=== PATIENT | female | born 1945 | race Caucasian/White ===

== ENCOUNTER 2019-02-28 16:48 | Inpatient (IN) ==
[2019-02-28] MEDS ORDERED: TYLENOL PO PRN (17:08)
[2019-02-28] MEDS ORDERED: NICODERM PATCH TD PRN (17:13)
[2019-02-28 17:53] LABS: BASO# 0.04 X1000 (0.0-0.2); BASO% 0.3 % (0.0-0.8); EOS# 0.06 X1000 (0.0-0.7); EOS% 0.4 % (0.0-10.0); HEMATOCRIT 33.9 % (37.0-47.0); HEMOGLOBIN 11.5 g/dL (12.0-16.0); IMM GRAN# 0.07 X1000 (0.0-0.04); IMM GRAN% 0.5 % (0.0-0.5); LYMPH# 1.32 X1000 (1.2-3.4); LYMPH% 9.3 % (20.5-51.1); MCH 29.2 PG (27-31); MCHC 33.9 g/dL (33-37); MONO# 1.77 X1000 (0.11-0.59); MONO% 12.4 % (1.7-9.3); MPV 10.2 FL (7.4-10.4); NEUT# 10.98 X1000 (1.4-6.5); NEUT% 77.1 % (42.2-75.2); PLT 424 X1000 (130-400); RBC 3.94 XMIL (4.2-5.4); RDW 13.9 % (11.5-14.5); WBC 14.24 X1000 (4.8-10.8)
--- NOTE | 2019-02-28 17:53 | HISTORY AND PHYSICAL ---
CHIEF COMPLAINT: Abdominal pain. HISTORY OF PRESENT ILLNESS: This is a 73-year-old female with no history of diverticulitis, I think she just has a history of hypertension, who presents from home with abdominal pain. This has been going on for about a month. Apparently, according to the daughter and the patient. She had underwent, daughter reports, colonoscopy about a week ago. Apparently, there was some difficulty passing the scope. That is what is reported; I do not have the report in front of me. Then had a CT set up as follow-up today, which revealed a lot of sigmoid thickening and evidence of diverticulitis with a likely abscess. She reports no fever. No nausea/vomiting. Patient was a direct admit per Dr. Honeycutt. PAST MEDICAL HISTORY: Hypertension. She does not report anything else and no other chronic medications. PAST SURGICAL HISTORY: She has had a tubal ligation 55 years ago. No other abdominal surgeries. SOCIAL HISTORY: Does smoke about 2 or 3 cigarettes a day. DISPOSITION: She was admitted for treatment. ALLERGIES: No known drug allergies. MEDICATIONS: I do not have a list compiled. FAMILY HISTORY: Reviewed and noncontributory. No colon cancer. Mother and father had CAD history. REVIEW OF SYSTEMS: Otherwise negative times a 10 point review of systems. Unclear what her weight loss is. PHYSICAL EXAMINATION: GENERAL: A thin female, pale, in no acute distress. HEAD: Normocephalic, atraumatic. EYE: Pupils equal, round, and reactive to light. Extraocular movements were intact. EAR, NOSE, AND THROAT: She had moist mucous membranes. NECK: Exam was supple. CARDIOVASCULAR: Regular rate and rhythm. PULMONARY: Bilateral breath sounds clear to auscultation. GASTROINTESTINAL: Soft, nontender, nondistended. Bowel sounds are positive. EXTREMITIES: No clubbing or cyanosis. LYMPHATIC: No peripheral edema. NEUROLOGICAL: Exam was nonfocal. MUSCULOSKELETAL: Exam was 4 to 5 in all 4 extremities. DIAGNOSTIC STUDIES: Laboratory Data: I have none. CT showed the sigmoid diverticulitis with a 5 x 5 cm abscess. PROBLEM LIST: This is a 73-year-old female, presenting with sigmoid abscess, most likely diverticular, possible chance of malignancy. 1. Diverticular abscess. We will get a surgical consult because she may need resection. I am also going to look at doing a CT-guided abscess drainage tomorrow, unless of course Dr. Taylor feels she needs surgery. We will continue empiric antibiotics. Zosyn should cover gram negatives and coliforms, so we will institute that. Continue pain control, IV fluids, and follow. 2. Hypertension. We will continue to monitor and see if she needs anything else from that standpoint. 3. Moderate protein-calorie malnutrition. We will monitor for refeeding syndrome. We will continue to follow closely. DISPOSITION: Pending clinical status. We will consult Dr. Taylor and Dr. Honeycutt and follow closely. I will order a CEA level as well. cc: MD Aren Muhammad MD Robert C. Walker, MD Babu Kantamneni, MD MTDD
[2019-02-28 18:02] LABS: INR 1.12; PROTIME 14.6 Seconds (11.0-16.0)
[2019-02-28 18:16] LABS: ESTIMATED GFR > 60
[2019-02-28 18:30] LABS: AGAP 18; ALB/GLOB RATIO 0.8; ALBUMIN 3.1 g/dL (3.5-5.0); ALKALINE PHOSPHATASE 87 U/L (32-104); BUN 12 mg/dL (8-22); CHLORIDE 86 mmol/L (98-107); COSMO 264; CREATININE 0.4 mg/dL (0.5-0.9); GLUCOSE 99 mg/dL (70-104); GOT 23 U/L (10-30); GPT 15 U/L (10-36); SODIUM 132 mmol/L (136-145); TCO2 28 mmol/L (25-35); TOTAL BILIRUBIN 0.56 mg/dL (0.20-1.00); TOTAL PROTEIN 7.2 g/dL (6.3-8.3)
--- NOTE | 2019-02-28 20:45 | Diag Imaging Result Doc PS360 ---
EXAM: CHEST-1 VIEW HISTORY: sepsis protocol TECHNIQUE: Chest single view COMPARISON: None. FINDINGS: The lungs are hyperexpanded. The heart is not enlarged. The vessels are not distended. There are no infiltrates. No effusion identified. IMPRESSION: No pneumonia. Electronically signed by Keenan Goldberg 02/28/2019 8:43 PM
--- NOTE | 2019-02-28 21:15 | GENERAL SURGERY CONSULTATION ---
DATE: 02/28/2019 HISTORY OF PRESENT ILLNESS: Ms. Alves is a 73-year-old female, who was brought in because of crampy abdominal pain. She apparently has had cramps for a month and has lost a significant amount of weight. She was seen by Dr. Honeycutt recently who attempted a colonoscopy but was not able to traverse a strictured area felt to be due to diverticular disease. She had a CT scan today, which showed severe diverticular disease with thickening and possible abscess formation. PAST MEDICAL HISTORY: Pertinent for some hypertension. PREVIOUS SURGERY: Includes a tubal ligation 55 years ago but none recently. SOCIAL HISTORY: She has an attentive family. She smokes 2 to 3 cigarettes a day. MEDICATIONS: The only medication she takes is Inderal for hypertension. ALLERGIES: She has no known drug allergies. FAMILY HISTORY: Pertinent for coronary artery disease. REVIEW OF SYSTEMS: Negative in every subsystem except for her GI tract where she says she has the crampy pain and borborygmi. PHYSICAL EXAMINATION: Vital Signs: Temperature is 99.3 degrees, heart rate is 79, blood pressure 108/56. Neck: No cervical adenopathy. Lungs: Bilateral breath sounds. Heart: Regular rate and rhythm. Abdomen: Soft. She has tinkling bowel sounds. Mildly tender. Extremities: Femoral pulses present. No peripheral edema. She is awake and alert. She has 2+ DP pulses. LABORATORY DATA: Her white count is 14,000. Chemistry is fine. Her albumin is a bit low. ASSESSMENT: Probable diverticular disease with complication being stricture and abscess. I think she will probably end up coming to colectomy and probably colostomy. We will discuss that further in the morning. cc: Jerardo Taylor MD
[2019-02-28] MEDS: ZOSYN 3.375 GM in NS 50 ML IV SCH (21:59)
[2019-02-28] MEDS: NS 1,000 ML IV SCH (22:00)
[2019-03-01] MEDS: MORPHINE IV PRN ×2 (03:26→10:59)
[2019-03-01] MEDS: ZOSYN 3.375 GM in NS 50 ML IV SCH ×4 (03:26→23:08)
[2019-03-01] MEDS: NS 1,000 ML IV SCH (05:13)
[2019-03-01 07:06] LABS: BASO# 0.02 X1000 (0.0-0.2); BASO% 0.2 % (0.0-0.8); EOS# 0.04 X1000 (0.0-0.7); EOS% 0.4 % (0.0-10.0); HEMATOCRIT 30.2 % (37.0-47.0); HEMOGLOBIN 9.9 g/dL (12.0-16.0); IMM GRAN# 0.03 X1000 (0.0-0.04); IMM GRAN% 0.3 % (0.0-0.5); LYMPH# 1.03 X1000 (1.2-3.4); LYMPH% 10.7 % (20.5-51.1); MCH 28.3 PG (27-31); MCHC 32.8 g/dL (33-37); MCV 86.3 FL (81-99); MONO# 0.89 X1000 (0.11-0.59); MONO% 9.2 % (1.7-9.3); MPV 9.9 FL (7.4-10.4); NEUT# 7.66 X1000 (1.4-6.5); NEUT% 79.2 % (42.2-75.2); PLT 360 X1000 (130-400); RDW 13.8 % (11.5-14.5); WBC 9.67 X1000 (4.8-10.8)
[2019-03-01 07:35] LABS: AGAP 17; ALB/GLOB RATIO 0.7; ALBUMIN 2.5 g/dL (3.5-5.0); ALKALINE PHOSPHATASE 72 U/L (32-104); BUN 7 mg/dL (8-22); CALCIUM 8.2 mg/dL (8.8-10.2); CHLORIDE 93 mmol/L (98-107); COSMO 271; CREATININE 0.3 mg/dL (0.5-0.9); ESTIMATED GFR > 60; GLUCOSE 80 mg/dL (70-104); GOT 14 U/L (10-30); GPT 12 U/L (10-36); SODIUM 137 mmol/L (136-145); TCO2 27 mmol/L (25-35); TOTAL PROTEIN 6.1 g/dL (6.3-8.3)
[2019-03-01 07:47] LABS: POTASSIUM 2.4 mmol/L (3.5-5.1)
--- NOTE | 2019-03-01 08:58 | GENERAL SURGERY PROGRESS NOTE ---
DATE: 03/01/2019 Ms. Alves' white count is down to 9000 today. Her potassium is down to 2.4. I reviewed her CT scan with Dr. Jones. It appears that she has a stricture of the ileum and the contrast that enters the abscess probably comes from the ileal stricture possibly consistent with a Crohn's fistula. We did not think that her diverticulum in the sigmoid is the source of her abscess. So, the plan is to percutaneously drain the abscess and then treat her with medications in hopes that we can relieve her ileal stricture, her Crohn's. Will delay surgery for now realizing that it may still become necessary. We discussed all this with her. cc: Jerardo Taylor MD
[2019-03-01] MEDS ORDERED: XYLOCAINE-MPF 1% 0 ML ONE (09:43)
[2019-03-01] MEDS ORDERED: CARBOCAINE PF 2% ONE (09:50)
[2019-03-01] MEDS ORDERED: XYLOCAINE 1% ONE (09:55)
[2019-03-01] MEDS: ZOFRAN IV PRN (10:59)
[2019-03-01] MEDS: POTASSIUM CHLORIDE 20 MEQ/SWI 20 MEQ/100 ML IVPB IV SCH ×2 (11:03→14:45)
--- NOTE | 2019-03-01 11:11 | Diag Imaging Result Doc PS360 ---
EXAM: CT DRAIN ABDOMEN ABSCESS W/IMG 03/01/2019 HISTORY: abscess TECHNIQUE: CT-guided percutaneous drainage of pelvic abscess. COMMENT: The risks and benefits of the procedure were discussed with the patient prior to the procedure, including the possibility of bleeding, infection, reaction to lidocaine, or inadvertent puncture of hollow viscus. She agreed to the procedure. Following sterile preparation the skin and administration of 1% lidocaine to the skin and deeper soft tissues over the left gluteal region, a 10.2-[place] drainage catheter was placed via trocar technique into the abscess which is located adjacent to and inflamed loop of ileum superior to the sigmoid colon. Purulent material was obtained, however the procedure is complicated by the development of a fairly substantial retroperitoneal hematoma on the left. There is likely that the catheter placement punctured a branch of the internal iliac vein and/or artery. The hematoma is at least 12.9 x 3.7 x 7.6 cm. IMPRESSION: Successful placement of abscess drainage catheter complicated by hematoma formation as described. The findings and complication have been discussed with Dr. Taylor in person at 1030. Electronically signed by Omar Jones 03/01/2019 11:09 AM
[2019-03-01] MEDS: POTASSIUM CHLORIDE 40 MEQ in NS 1,000 ML IV SCH ×3 (11:32→21:21)
--- NOTE | 2019-03-01 11:52 | GASTROENTEROLOGY CONSULTATION ---
DATE: 03/01/2019 ATTENDING PHYSICIAN: Dr. Lewis. PRIMARY CARE DOCTOR: Dr. Aren Clemons. REASON FOR CONSULTATION: Diverticulitis, colon stricture, and diverticular abscess. HISTORY OF PRESENT ILLNESS: Ms. Alves is a 73-year-old female, who was admitted yesterday for symptoms of worsening abdominal pain. The patient has been having altered bowel habits and abdominal pain, and weight loss for the last 1 month. She had a colonoscopy attempted by Dr. Honeycutt a week ago. At that time it was reported to the patient that the patient had a colonic stricture and the scope could not pass through the sigmoid. The patient continued to have worsening abdominal symptoms. She presented to the ER. She had a CT scan done which showed resolved sigmoid wall thickening, and evidence of diverticulitis with likely abscess. Dr. Taylor was called and he is following, and Dr. Taylor is planning for possible surgical intervention. Today, she has gone down for a CT-guided abscess drainage. She just came back from that. According to the last note from Dr. Taylor he reviewed the CT scan with Dr. Jones and it appears like the patient has a stricture of the ileum, and that contrast enters the abscess probably from the ileal stricture, consistent with a Crohn's fistula. He does not think the diverticulum in the sigmoid is the source of her abscess. The prior CT scan report done on 02/28 showed evidence of high-grade inflammation of the sigmoid colon with wall thickening, and there is adjacent abscess with oral contrast leak within the abscess. This indicates either severe diverticulitis or malignancy in this region, with perforation. The patient is currently being treated conservatively with IV fluids, IV antibiotics, and IV pain control. The patient denies any nausea, vomiting, vomiting blood, or passing blood in the stools. PAST MEDICAL HISTORY: Hypertension. Diverticulosis. Colon stricture. PAST SURGICAL HISTORY: Tubal ligation 55 years ago. Colonoscopy 1 week ago. SOCIAL HISTORY: She has a very supportive family at bedside. I spoke to the patient's daughter and her sister at bedside. I also spoke to the patient's son and son-in-law at bedside. She smokes 2 cigarettes a day. ALLERGIES: No known drug allergies. MEDICATIONS IN THE HOSPITAL: The medications in the hospital were reviewed and include Tylenol, potassium chloride, morphine, NicoDerm patch, normal saline 120 mL/h, Zofran, and Zosyn. She is currently NPO. FAMILY HISTORY: Denies history of colon cancer in the family. Mother and father both had coronary disease history. REVIEW OF SYSTEMS: The patient denies any current fevers, and does have abdominal soreness at the site of the drain placement. Denies any nausea, vomiting, vomiting blood, or passing blood in the stools. Denies any neurologic complaints. PHYSICAL EXAMINATION: Vital signs: Temperature of 98.3 degrees, pulse of 96, respiratory rate 18, blood pressure 95/47, saturating 98% on room air. Body weight of 99 pounds, BMI 16.5 kg/m2. General: The patient is moderately built, lying in bed in no acute distress. HEENT: Pale conjunctivae. No icterus. Pupils equal and reactive to light. Neck: Supple. Abdomen: Discomfort in the left lower quadrant. No guarding. No rebound. Back: Also examined the back area and it showed a drain coming out of the left gluteal region. Extremities: No cyanosis, clubbing, edema. Neurologic: She is alert, awake, and oriented. DIAGNOSTIC DATA: Hemoglobin and hematocrit is 9.9 and 30.2, white count of 9.6, platelet count of 360,000. Sodium 137, potassium 2.4, chloride 93, bicarb 20, anion gap 17, BUN of 7, creatinine 0.3, glucose of 80. Calcium is 8.2. Total bilirubin is 0.5. AST 14, ALT 12, alkaline phosphatase 72. Total protein 6.2. Albumin of 2.5. Blood cultures were drawn yesterday x2, they are currently pending. CT scan report as described in HPI. IMPRESSION AND PLAN: 1. Diverticular abscess per the CT scan, but we will talk with Dr. Taylor about his impression of terminal ileal stricture or Crohn's disease. We will also obtain records from our office. Currently she has just come from CT-guided abscess drainage. She is on empiric antibiotics. We will continue with that. She is on IV fluids, IV pain control. We will continue to treat it like diverticulitis and diverticular abscess for now. We will continue to follow on General Surgery recommendations. 2. Anemia. Continue to monitor for now, transfuse as needed. 3. GI prophylaxis, PPIs. 4. Smoking history. She is on NicoDerm patch. Patient counseled to quit smoking. 5. Currently she is NPO. We will await General Surgery recommendations regarding starting oral intake. 6. I have discussed with Dr Taylor and there is a possible stricture and thickening of the terminal Ileum on CT scan: Will check IBD Panel. The above plan was discussed with the patient and family and all questions answered. Please call us with any further questions. cc: MD Aren Smith MD Alexis R. Penot, MD Babu Kantamneni, MD MTDD
--- NOTE | 2019-03-01 12:24 | PROGRESS NOTE ---
DATE: 03/01/2019 SUBJECTIVE: The patient has no major complaints except that she is uncomfortable. OBJECTIVE: Blood pressure 95/47, heart rate is 96. Cardiovascular: Regular rate and rhythm. Pulmonary: Bilateral breath sounds clear to auscultation. GI was limited. She was in a prone position because of her drain. Laboratory Data: Her white count is 9, hemoglobin and hematocrit 9.9 and 30, platelets of 360,000. Potassium 2.4. PROBLEM LIST: 1. Presumed diverticular abscess versus Crohn's, inflammatory bowel disease associated abscess. Gastroenterology and surgery are following. She is status post a drain placement today. We will continue empiric antibiotics. I think the plan, talking to Dr. Taylor, was to see about gastroenterology possibly treating her inflammatory bowel disease and seeing if that improves her stricture but it is not 100% clear what else we are doing right now. We will follow up on the wound cultures. She does need a colonoscopy but that will be at the discretion of the practising physicians. 2. Hypokalemia. We will supplement and follow. 3. Possible postbiopsy bleeding. We are going to continue to monitor. I think that she is going to get another scan this afternoon just to make sure that the hematoma has not expanded further, although I do not see that has been ordered. Then we will continue to follow closely. DISPOSITION: Pending clinical status. We will continue to monitor. I am going to move her to the stepdown just so we can monitor her closely since I am concerned about bleeding and hemodynamic disruption. cc: Sid Lewis MD
[2019-03-01 12:59] LABS: HEMATOCRIT 31.8 % (37.0-47.0); HEMOGLOBIN 10.3 g/dL (12.0-16.0)
[2019-03-01] MEDS: PROTONIX IV SCH (13:38)
[2019-03-01] MEDS: SODIUM CHLORIDE 0.9% INJ SCH (13:38)
[2019-03-01] MEDS ORDERED: NS 500 ML IV ONE ×2 (14:38→15:08)
--- NOTE | 2019-03-01 19:11 | Diag Imaging Result Doc PS360 ---
EXAM: CT ABD/PELVIS W/IV CONT ONLY INDICATION: evaluate hematoma TECHNIQUE: This exam was performed using automated exposure control, adjustment of mA or kV according to patient size, and/or use of iterative reconstruction technique. COMPARISON: CT abdomen and pelvis dated 02/28/2019 and images from a CT-guided pigtail drainage catheter placement performed earlier today. FINDINGS: The recently placed pigtail drainage catheter is approximately stable with the tip in the left side of the pelvis. The associated abscess at the left side of the pelvis is approximately stable in size as compared to the postprocedural images performed earlier today after placement of the drainage catheter. The left retroperitoneal hematoma, which was seen on the postprocedural images after placement of the drainage catheter on the left has not changed significantly and it may be slightly smaller than the previous study. A thickened loop of small bowel adjacent to the abscess is approximately stable. The sigmoid colon appears somewhat thickened. This is also stable. Otherwise, there has been no significant changes compared to previous studies. IMPRESSION: 1.Postprocedural retroperitoneal hematoma on the left that is stable or slightly smaller than images from earlier today. 2.The drainage catheter is in approximately stable position in the pelvis and the pelvic abscess is similar to the postprocedural images performed earlier today. Electronically signed by David Hernandez 03/01/2019 7:08 PM
[2019-03-01] MEDS ORDERED: PEPCID PO SCH (21:00)
[2019-03-01] MEDS: OFIRMEV 1000 MG/ISOTONIC SOLN 1,000 MG/100 ML BOTTLE IV SCH (21:02)
[2019-03-02] MEDS: OFIRMEV 1000 MG/ISOTONIC SOLN 1,000 MG/100 ML BOTTLE IV SCH ×4 (02:29→20:07)
[2019-03-02] MEDS: POTASSIUM CHLORIDE 40 MEQ in NS 1,000 ML IV SCH ×2 (02:58→10:29)
[2019-03-02] MEDS: ZOSYN 3.375 GM in NS 50 ML IV SCH ×4 (03:59→17:56)
[2019-03-02 09:01] LABS: AGAP 12; BUN 4 mg/dL (8-22); CALCIUM 8.1 mg/dL (8.8-10.2); CHLORIDE 108 mmol/L (98-107); COSMO 271; CREATININE 0.3 mg/dL (0.5-0.9); ESTIMATED GFR > 60; GLUCOSE 70 mg/dL (70-104); POTASSIUM 4.2 mmol/L (3.5-5.1); SODIUM 138 mmol/L (136-145); TCO2 18 mmol/L (25-35)
[2019-03-02 09:15] LABS: BASO# 0.02 X1000 (0.0-0.2); BASO% 0.2 % (0.0-0.8); EOS# 0.01 X1000 (0.0-0.7); EOS% 0.1 % (0.0-10.0); HEMATOCRIT 23.8 % (37.0-47.0); HEMOGLOBIN 7.5 g/dL (12.0-16.0); IMM GRAN# 0.03 X1000 (0.0-0.04); IMM GRAN% 0.4 % (0.0-0.5); LYMPH# 0.53 X1000 (1.2-3.4); LYMPH% 6.5 % (20.5-51.1); MCH 28.1 PG (27-31); MCHC 31.5 g/dL (33-37); MCV 89.1 FL (81-99); MONO# 0.71 X1000 (0.11-0.59); MONO% 8.7 % (1.7-9.3); NEUT% 84.1 % (42.2-75.2); PLT 283 X1000 (130-400); RBC 2.67 XMIL (4.2-5.4)
--- NOTE | 2019-03-02 11:34 | GENERAL SURGERY PROGRESS NOTE ---
DATE: 03/02/2019 SUBJECTIVE: The patient complains of pain in her left hip after drainage catheter placed yesterday. Otherwise, she is doing okay. OBJECTIVE: Vital Signs: She is afebrile, pulse 82, respirations 19, blood pressure 104/52, O2 saturation 98%. General: She is awake, alert, oriented x4. No acute distress. Cardiovascular: Regular rate and rhythm. Respiratory: Bilateral equal breath sounds. No work of breathing. Gastrointestinal: Soft, nondistended. Mildly tender in the lower abdomen. No rebound or guarding. Back: Her left flank where the drainage catheter is was examined. There is no erythema, drainage or induration in this area. No swelling. The catheter has old bloody fluid in it's drainage bag. She can lift her left hip, but that does cause pain with active range of motion. Passively, it is less painful. LABORATORY DATA: White blood cell count 8, hemoglobin 7.5, hematocrit 23.8, platelet count 283,000. Electrolytes reviewed and unremarkable. ASSESSMENT AND PLAN: A 73-year-old female with pelvic abscess. Etiology is unclear. Possible diverticulitis of the sigmoid colon versus small bowel stricture and abscess secondary to new onset of inflammatory bowel disease. She had a drainage catheter placed yesterday for the abscess with a complication of a retroperitoneal hematoma. She has acute blood loss anemia with significant decrease of her blood count overnight. We will give her 2 units of packed red blood cells and monitor her H H today. Currently, she is hemodynamically stable. We will continue broad-spectrum antibiotics. She is noted to be on a clear liquid diet. I will maintain this for now. Further evaluation may require a water-soluble enema to further clarify the source of colon versus small bowel. cc: Daron Vega MD
--- NOTE | 2019-03-02 11:53 | PROGRESS NOTE ---
DATE: 03/02/2019 SUBJECTIVE: Patient has no major complaints. OBJECTIVE: Vital Signs: Blood pressure is 106/51, heart rate of 79, respiratory rate 18, temperature 98.1 degrees, 97% on room air. Cardiovascular: Regular rate and rhythm. Pulmonary: Bilateral breath sounds clear to auscultation. GI: Soft, nontender, nondistended. Bowel sounds positive. LABORATORY DATA: Her white count is 8. Her hemoglobin and hematocrit has dropped to 7.5 and 23.8 from 10 and 31, platelets of 281,000. Potassium is 4.[address] yesterday showed a stable hematoma, retroperitoneal, which was smaller. PROBLEM LIST: 1. Abscess formation. She had a fairly large internal hematoma so her abscess, which is felt to be either due to diverticulosis or more likely an ileal abscess related to possible Crohn disease. We will continue empiric antibiotics. I am still waiting on recommendations from GI concerning inflammatory bowel disease treatment such as steroids or Entocort, things of that nature. At this point, it is unclear what the etiology of her abscess is. 2. Hypokalemia, that has resolved. 3. Retroperitoneal hematoma related with procedure, that is stable. 4. Symptomatic anemia. Her hemoglobin and hematocrit has dropped significantly. Her hemoglobin and hematocrit has dropped but I am not sure if that is just a post hemorrhage affect. I do not think she is actively bleeding. Her vital signs have been stable. I just think she had a significant bleed. I do think we will probably have to re-image her in a day or 2 just to get a sense of if we are making a dent in her abscess, so we will continue to follow. cc: Sid Lewis MD
[2019-03-02] MEDS: NS 1,000 ML IV SCH (12:06)
[2019-03-02] MEDS: PROTONIX IV SCH (12:06)
--- NOTE | 2019-03-02 12:53 | PROVIDER PROGRESS NOTE ---
Progress Note S: No acute overnight events. Patient reports left sided and left leg numbness after percutaneous drain placement. O: Last Vital Signs Temp 98.1 F 03/02/19 11:06 Pulse 79 03/02/19 11:06 Resp 18 03/02/19 11:06 BP 106/51 03/02/19 11:06 Pulse Ox 97 03/02/19 11:06 Height 5 ft 5 in Weight 99 lb GEN: awake, alert, NAD HEENT: anicteric, MMM NECK: supple, no jvd PULM: CTAB, no wheezing ABD: soft NT/ND, NABS, no rebound or guarding EXT: no cce left flank drain in place with serosanginous fluid LABS: 03/02/19 03/02/19 07:20 07:20 WBC 8.20 Hgb 7.5 L D Plt Count 283 Sodium 138 Potassium 4.2 D Chloride 108 H D Carbon Dioxide 18 L Anion Gap 12 BUN [address] A/P on 03/01 IMPRESSION: 1.Postprocedural retroperitoneal hematoma on the left that is stable or slightly smaller than images from earlier today. 2.The drainage catheter is in approximately stable position in the pelvis and the pelvic abscess is similar to the postprocedural images performed earlier today. A/P: Ms. Tania Alves is a 73 year old woman admitted with diverticular abscess likely from diverticulitis. She is improving with antibiotics. Percutaneous pelvic drain was placed yesterday c/b left RP bleed and anemia. Upon review of her CT imaging, there is concern for ileitis and possible fistulizing Crohn's. However, an initial presentation of severe and complicated Crohn's disease would be extremely unusual in a woman at her advanced age. IBD panel was ordered; however, clinical utility is limited. Ileitis noted may be fistulization or inflammation from complicated diverticulitis. Agree with continued antibiotics, bowel rest, and IVFs. Trend H/H and transfuse prn for hgb 7-8. Surgery following. Patient is not a candidate for colonoscopy at this time given diverticulitis and concern for possible preforated viscus. # Diverticulitis and intraabdominal abscess: continue abx and plan as above # Ileitis: as above # Anemia # RP bleed Will follow with you.
[2019-03-02 20:47] LABS: HEMATOCRIT 30.8 % (37.0-47.0); HEMOGLOBIN 10.2 g/dL (12.0-16.0)
[2019-03-02 21:08] LABS: IRON SATURATION 19 %; TIBC 104 ug/dL; TOTAL IRON 20 ug/dL (49-151); UNBOUND IRON 84 ug/dL (112-346)
[2019-03-02] MEDS: MORPHINE IV PRN (22:04)
[2019-03-03] MEDS: ZOSYN 3.375 GM in NS 50 ML IV SCH ×5 (00:07→23:38)
[2019-03-03] MEDS: OFIRMEV 1000 MG/ISOTONIC SOLN 1,000 MG/100 ML BOTTLE IV SCH ×2 (01:06→08:11)
[2019-03-03] MEDS: MORPHINE IV PRN ×2 (02:46→11:50)
[2019-03-03 07:03] LABS: BASO# 0.02 X1000 (0.0-0.2); BASO% 0.2 % (0.0-0.8); EOS# 0.03 X1000 (0.0-0.7); EOS% 0.4 % (0.0-10.0); HEMATOCRIT 31.4 % (37.0-47.0); HEMOGLOBIN 10.3 g/dL (12.0-16.0); IMM GRAN# 0.07 X1000 (0.0-0.04); IMM GRAN% 0.8 % (0.0-0.5); LYMPH# 0.68 X1000 (1.2-3.4); MCH 29.1 PG (27-31); MCHC 32.8 g/dL (33-37); MCV 88.7 FL (81-99); MONO# 0.65 X1000 (0.11-0.59); MONO% 7.6 % (1.7-9.3); NEUT# 7.07 X1000 (1.4-6.5); PLT 243 X1000 (130-400); RBC 3.54 XMIL (4.2-5.4); RDW 14.4 % (11.5-14.5); WBC 8.52 X1000 (4.8-10.8)
[2019-03-03 07:23] LABS: AGAP 14; BUN 3 mg/dL (8-22); CALCIUM 7.5 mg/dL (8.8-10.2); CHLORIDE 110 mmol/L (98-107); COSMO 273; CREATININE 0.3 mg/dL (0.5-0.9); ESTIMATED GFR > 60; GLUCOSE 54 mg/dL (70-104); POTASSIUM 3.8 mmol/L (3.5-5.1); SODIUM 140 mmol/L (136-145); TCO2 16 mmol/L (25-35)
[2019-03-03] MEDS: NS 1,000 ML IV SCH ×2 (08:11→22:08)
--- NOTE | 2019-03-03 10:55 | PROVIDER PROGRESS NOTE ---
Progress Note S: No acute overnight events. Afebrile. Minimal abdominal pain. Reports left leg and side pain primarily with movement. Tolerating clears. No documented BMs. O: Last Vital Signs Temp 98.2 F 03/03/19 08:23 Pulse 69 03/03/19 08:23 Resp 17 03/03/19 08:23 BP 105/50 03/03/19 08:23 Pulse Ox 95 03/03/19 08:23 Height 5 ft 5 in Weight 103 lb 11.2 oz GEN: awake, alert, NAD HEENT: anicteric, MMM NECK: supple, no jvd PULM: CTAB, no wheezing ABD: soft NT/ND, NABS, no rebound or guarding; left flank drain in place with serosanginous fluid EXT: no cce LABS: 03/03/19 03/03/19 06:27 06:27 WBC 8.52 Hgb 10.3 L Plt Count 243 Sodium 140 Potassium 3.8 Chloride 110 H Carbon Dioxide 16 L BUN 3 L Creatinine 0.3 L Glucose 54 L A/P: Ms. Tania Alves is a 73 year old woman admitted with diverticular abscess likely from diverticulitis. She is improving with antibiotics. Percutaneous pelvic drain was placed 03/01 c/b left RP bleed and anemia, improved with transfusion. 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 I would caution using results for clinical decision making as these studies are experimental and not typically used for clinical decision making. IBD diagnosis primarily made by endoscopic evaluation and tissue diagnosis. # Diverticulitis and intraabdominal abscess; less likely Crohn's: continue abx; pelvic drain in place; surgery following, appreciate recs; patient is high risk for endoscopic evaluation; defer any endoscopic procedures for at least 6 weeks; sigmoid stricture will likely prohibit completion unless it is primarily inflammatory and not fibrotic # Sigmoid stricture: likely from above # Ileitis: as above # Anemia: improved # RP bleed: hgb stable # Hypglycemia: noted Will follow with you. Please call with questions
[2019-03-03] MEDS: SODIUM CHLORIDE 0.9% INJ SCH (12:06)
[2019-03-03] MEDS: PROTONIX IV SCH (12:06)
--- NOTE | 2019-03-03 14:39 | GENERAL SURGERY PROGRESS NOTE ---
DATE: 03/03/2019 SUBJECTIVE: The patient overall says she is feeling better with less abdominal pain. No nausea or vomiting. She does complain mostly of left gluteal and hip pain. It is worsened with flexing her hip. OBJECTIVE: Vital signs: She is afebrile. Vital signs are stable. Her drain output was recorded as 170 mL yesterday and it appears to be old blood. General: She is awake, alert, oriented x4. No acute distress. Cardiovascular: Regular rate and rhythm. Respiratory: No work of breathing. Gastrointestinal: Soft, nondistended. Minimally tender. No rebound or guarding. She does have bowel sounds. Extremities: She moves all her extremities well. The left gluteal area where the drain is placed appears to be without induration, swelling, or erythema. LABORATORY DATA: CBC and metabolic profile reviewed and unremarkable. Her drainage culture is positive for Klebsiella pneumoniae, it is sensitive to Zosyn. ASSESSMENT AND PLAN: A 73-year-old female with intraabdominal abscess secondary to diverticulitis versus small bowel Crohn disease as the most likely etiologies. The abscess was drained. However, she developed a hematoma in the retroperitoneum. This is apparently draining through her pigtail drain. Overall, I think the intraabdominal inflammatory process is improving. She is afebrile. Her white count is normal and her abdominal symptoms appear to be improved. We will continue the pigtail drain at least another day to allow more hematoma to evacuate, but I would like to remove it soon so that she has better comfort and mobility. I will advance her diet to a full liquid with Ensure or boost and continue the current Zosyn. cc: Daron Vega MD
[2019-03-03] MEDS: NORCO-10 PO PRN ×2 (15:38→22:08)
--- NOTE | 2019-03-03 15:45 | PROGRESS NOTE ---
DATE: 03/03/2019 SUBJECTIVE: The patient has no major complaints. She looks better today. Her color is better. She is just more animated. OBJECTIVE: Vital signs: Blood pressure 111/50, heart rate 68, respiratory 17, temperature 95 degrees, 97% on room air. Cardiovascular: Regular rate and rhythm. Pulmonary: Bilateral breath sounds clear to auscultation,. Gastrointestinal: Soft, nontender, nondistended. Bowel sounds are positive. LABORATORY DATA: White count 8, hemoglobin and hematocrit 10 and 31, platelets 243,000. Bicarb has come down a bit, 16, I am not sure if that is in her sugar is 54. Her chemistries, her micro shows Klebsiella pneumoniae, that is what grew out of her abscess culture. She is still having drainage, but it looks like hematoma drainage. PROBLEM LIST: 1. Diverticular abscess versus a fistula abscess. Dr. Cardoza feels this is more likely diverticular and not IBD. The serology which is not very specific, unfortunately, does not solidify the diagnosis one. Either way, she will need endoscopy at some point, but right now there is too much inflammation risk it without perforation, so we will continue antibiotics and follow. She is improving, though, just more appetite, those kinds of things. 2. Hypokalemia. That has improved. 3. Retroperitoneal hematoma. That is stabilizing. It is draining. Seems to be doing okay. Dr. Vega planning to take it out soon. 4. Anemia. She received 2 units. She is much improved. Hemoglobin and hematocrit has been stable since yesterday's post transfusion. DISPOSITION: We will work on trying to get her up a bit, work with Physical Therapy. She may end up needing inpatient rehab. We will follow. I am going to repeat her CT unless Surgery or GI feels differently just to look at the area of fistulization unless Surgery feels like we should wait a little longer on Tuesday, that is 2 days away, and see how she does. Probably getting close to being able to go back to the floor I think. cc: Sid Lewis MD
[2019-03-04] MEDS: ZOSYN 3.375 GM in NS 50 ML IV SCH ×3 (05:55→18:15)
[2019-03-04] MEDS: PRILOSEC PO SCH ×2 (05:55→06:27)
[2019-03-04] MEDS: NORCO-10 PO PRN ×3 (07:04→22:31)
[2019-03-04 07:08] LABS: BASO# 0.02 X1000 (0.0-0.2); BASO% 0.2 % (0.0-0.8); EOS# 0.11 X1000 (0.0-0.7); EOS% 1.3 % (0.0-10.0); HEMATOCRIT 32.7 % (37.0-47.0); HEMOGLOBIN 10.8 g/dL (12.0-16.0); IMM GRAN# 0.06 X1000 (0.0-0.04); IMM GRAN% 0.7 % (0.0-0.5); LYMPH# 0.78 X1000 (1.2-3.4); MCH 28.8 PG (27-31); MCV 87.2 FL (81-99); MONO# 0.74 X1000 (0.11-0.59); MONO% 8.5 % (1.7-9.3); MPV 9.7 FL (7.4-10.4); NEUT% 80.3 % (42.2-75.2); PLT 262 X1000 (130-400); RBC 3.75 XMIL (4.2-5.4); RDW 14.7 % (11.5-14.5); WBC 8.71 X1000 (4.8-10.8)
[2019-03-04 07:28] LABS: AGAP 15; BUN 2 mg/dL (8-22); CALCIUM 7.9 mg/dL (8.8-10.2); CHLORIDE 106 mmol/L (98-107); COSMO 268; CREATININE 0.3 mg/dL (0.5-0.9); ESTIMATED GFR > 60; GLUCOSE 56 mg/dL (70-104); POTASSIUM 3.2 mmol/L (3.5-5.1); SODIUM 137 mmol/L (136-145); TCO2 16 mmol/L (25-35)
[2019-03-04] MEDS: MORPHINE IV PRN ×2 (09:07→14:06)
--- NOTE | 2019-03-04 10:21 | GENERAL SURGERY PROGRESS NOTE ---
DATE: 03/04/2019 SUBJECTIVE: She complains of a lot of pain in her left hip and gluteal area, where the drain is. Otherwise, her abdomen is not hurting her very much. She is not having nausea. She is tolerating a full liquid diet. She drank Ensure. She has passed some gas. OBJECTIVE: Vital Signs: She is afebrile. Vital signs are stable. Urine output 1400 mL yesterday. General: She is awake, alert, oriented x3. No acute distress. Cardiovascular: Regular rate and rhythm. Respiratory: Bilateral breath sounds. No work of breathing. Gastrointestinal: Soft, nondistended, minimally tender. The left flank drain has old clotted blood in the bag and in the line. I flushed the line with sterile saline, and reattached it to the bag. LABORATORY DATA: CBC and metabolic profile were reviewed and notable only for a potassium of 3.2. ASSESSMENT AND PLAN: A 73-year-old female with diverticulitis versus Crohn's disease with intraabdominal abscess, status post abscess drainage, and this was complicated with a retroperitoneal hematoma. I believe the abscess and inflammation in the abdomen is improving. The hematoma is likely much improved. We flushed the drain today to see if it will evacuate any more old blood overnight. If it does not, I would suggest removing the drain tomorrow, and re- scanning her in the next couple of days to reassess for any residual abscess. We will advance her to a gastrointestinal soft diet, and continue the Ensure as she seems to be improving from an intestinal functional standpoint. cc: Daron Vega MD
[2019-03-04] MEDS ORDERED: KLOR-CON PO ONE (11:02)
--- NOTE | 2019-03-04 12:15 | PROVIDER PROGRESS NOTE ---
Progress Note S: No acute overnight events. Afebrile. Patient reports some mild lower abdominal pain and left leg pain. No N/V/F, CP, SOB. +flatus. No BMs. O: Last Vital Signs Temp 98.0 F 03/04/19 11:28 Pulse 77 03/04/19 11:28 Resp 17 03/04/19 11:28 BP 111/57 03/04/19 11:28 Pulse Ox 99 03/04/19 11:28 Height 5 ft 5 in Weight 103 lb 11.2 oz GEN: awake, alert, NAD HEENT: anicteric, MMM NECK: supple, no jvd PULM: CTAB, no wheezing ABD: soft NT/ND, NABS, no rebound or guarding; left flank drain in place with bloody fluid EXT: no cce LABS: 03/04/19 03/04/19 06:41 06:41 WBC 8.71 Hgb 10.8 L Plt Count 262 Sodium 137 Potassium 3.2 L D Chloride 106 Carbon Dioxide 16 L Anion Gap 15 BUN 2 L Creatinine 0.3 L Glucose 56 L A/P: Ms. Tania Alves is a 73 year old woman admitted with diverticular abscess likely from diverticulitis. She is improving with antibiotics. Percutaneous pelvic drain was placed 03/01 c/b left RP bleed and anemia. She remains stable. Surgery following. # Diverticulitis and intraabdominal abscess; less likely Crohn's: continue abx; pelvic drain in place undergoing flushes per surgery; surgery following, appreciate recs; plan for repeat CT in a couple days to assess abscess and RP bleed as per surgery # Sigmoid stricture: likely from above # Ileitis: as above; cannot rule out Crohn's; however, lower suspicion # Anemia: stable # RP bleed: hgb stable # Hypoglycemia: noted Will follow with you. Please call with questions
[2019-03-04] MEDS: NS 1,000 ML IV SCH (14:07)
--- NOTE | 2019-03-04 15:40 | PROGRESS NOTE ---
DATE: 03/04/2019 SUBJECTIVE: The patient has no major complaints. OBJECTIVE: Vital Signs: Blood pressure is 111/57, heart rate 77, respiratory rate 17, temperature 98 degrees, 99% on room air. Cardiovascular: Regular rate and rhythm. Pulmonary: Bilateral breath sounds clear to auscultation. GI: Soft, nontender. LABORATORY DATA: White count is 8, hemoglobin and hematocrit 10 and 32, platelets 262,000. Potassium 3.2. She is a little bit iron deficient. B12 and folate are fine. PROBLEM LIST: 1. Diverticular abscess versus inflammatory bowel disease-associated fistula abscess. We will continue antibiotics. Her drain during sitting her up has fallen out. It was not draining for the last at least 12 hours if not longer, and it had only been draining blood prior to that. So, I do not think it needs to be urgently replaced. I have ordered a CT scan for tomorrow to re-evaluate her area of fistulization. That will be 5 days since her last scan. I defer to Dr. Vega and Brandon if they want to wait another day and continue IV antibiotics. She is eating more. She seems to be doing better from that standpoint. Her sugars are still low, because she is fairly malnourished. I think if she has normal bowel movements and she is eating, then I would just treat her with antibiotics. She is on Merrem right now. I think we could switch her to Zosyn without much difficulty. 2. Hypokalemia is stable. 3. Retroperitoneal hematoma. I think that is stable as well. Hemoglobin and hematocrit had dropped, but it has been stable now for 3 days. I think she is probably okay to go to the floor. We will continue to follow closely. DISPOSITION: Pending her clinical status. cc: Sid Lewis MD
[2019-03-04] MEDS: D5 NS 1,000 ML IV SCH (16:08)
[2019-03-04] MEDS: MIRALAX PO SCH (18:15)
[2019-03-05] MEDS: ZOSYN 3.375 GM in NS 50 ML IV SCH ×5 (00:47→23:51)
[2019-03-05 05:38] LABS: BASO# 0.02 X1000 (0.0-0.2); BASO% 0.3 % (0.0-0.8); EOS# 0.15 X1000 (0.0-0.7); EOS% 2.2 % (0.0-10.0); HEMATOCRIT 32.5 % (37.0-47.0); HEMOGLOBIN 10.9 g/dL (12.0-16.0); IMM GRAN# 0.03 X1000 (0.0-0.04); IMM GRAN% 0.4 % (0.0-0.5); LYMPH# 0.82 X1000 (1.2-3.4); LYMPH% 12.3 % (20.5-51.1); MCH 28.9 PG (27-31); MCHC 33.5 g/dL (33-37); MCV 86.2 FL (81-99); MONO# 0.73 X1000 (0.11-0.59); MONO% 10.9 % (1.7-9.3); MPV 9.4 FL (7.4-10.4); NEUT# 4.93 X1000 (1.4-6.5); NEUT% 73.9 % (42.2-75.2); PLT 269 X1000 (130-400); RBC 3.77 XMIL (4.2-5.4); RDW 14.7 % (11.5-14.5); WBC 6.68 X1000 (4.8-10.8)
[2019-03-05] MEDS: D5 NS 1,000 ML IV SCH ×2 (05:43→21:39)
[2019-03-05] MEDS: PRILOSEC PO SCH ×2 (05:45→06:04)
[2019-03-05 06:15] LABS: AGAP 7; BUN 2 mg/dL (8-22); CALCIUM 7.6 mg/dL (8.8-10.2); CHLORIDE 106 mmol/L (98-107); COSMO 275; CREATININE 0.3 mg/dL (0.5-0.9); ESTIMATED GFR > 60; GLUCOSE 119 mg/dL (70-104); POTASSIUM 3.1 mmol/L (3.5-5.1); SODIUM 139 mmol/L (136-145); TCO2 26 mmol/L (25-35)
--- NOTE | 2019-03-05 08:35 | Diag Imaging Result Doc PS360 ---
EXAM: CT ABD/PELVIS W/PO AND IV CON 03/05/2019 HISTORY: abscess/ TECHNIQUE: This exam was performed using automated exposure control, adjustment of mA or kV according to patient size, and/or use of iterative reconstruction technique. COMMENT: The current study is compared with the previous examination of 03/01/2019. There are bilateral pleural effusions. This was not the case previously. There is worsened atelectasis in both lung bases. The aorta is not distended. The mesenteric and renal arteries are patent. There is some atherosclerotic calcification in the aorta. There is a cyst in the medial left hepatic lobe. The gallbladder is slightly distended. There are no apparent stones. The spleen contains some granulomata. The adrenal glands are not enlarged. The pancreas is unremarkable. The kidneys are without evidence of hydronephrosis or mass. The left renal pelvis is enlarged slightly more so than on the previous study and that of 02/28/2019. This is probably due to compression of the distal left ureter by hematoma. There is no evidence of bowel obstruction. There is no evidence of significant adenopathy. Pelvis: The drainage tube which previously was placed transgluteal he into the abscess in the pelvis has been removed. Some reaccumulation of fluid is present within the abscess cavity. There is still smaller and with less gas than on 02/28/2019. Currently it measures 5 x 4.6 cm compared to 5.6 x 5.6 cm at the time of the study of 02/28/2019. The retroperitoneal hematoma which was previously demonstrated along the left pelvic sidewall has not changed significantly measuring at least 12.9 cm in anterior posterior dimension and 2.8 cm in transverse dimension. There is some presacral edema as there was previously. The urinary bladder and uterus are displaced to the right. There continues to be inflammation of the distal ileum. The regional skeleton is stable in appearance. IMPRESSION: 1. Stable left pelvic hematoma. This appears to be compressing the left ureter and may be producing a mild degree of hydronephrosis. 2. Pelvic abscess which is slightly larger than on the previous study, but smaller than on 02/28/2019. 3. Bilateral pleural effusions. Electronically signed by Omar Jones 03/05/2019 8:33 AM
--- NOTE | 2019-03-05 09:45 | GENERAL SURGERY PROGRESS NOTE ---
DATE: 03/05/2019 SUBJECTIVE: Ms. Alves is feeling better. She is afebrile with stable hemodynamics. Her white count is normal. She is able to eat solid food now and her bowels have moved, so she is obviously clinically better. Her CT scan shows a stable hematoma and abscess that has improved compared to her admission. I think we would benefit most by conservative therapy for now in discharging her home on p.o. antibiotics with multiple goal to do a colonoscopy on her to evaluate both her sigmoid colon as well as her ilium. An operation now would not only probably demand a long ileal resection as well as the sigmoid resection but necessitate a stoma which she and I both would like to avoid. With conservative approach and followup outpatient colonoscopy, then we might be able to even avoid surgery or at least at minimum decrease what we would be required and avoid a stoma. I have discussed this with her. cc: Jerardo Taylor MD
[2019-03-05] MEDS: NORCO-10 PO PRN ×2 (09:55→21:40)
[2019-03-05] MEDS: MIRALAX PO SCH (09:59)
[2019-03-05] MEDS: MORPHINE IV PRN ×2 (14:39→18:47)
[2019-03-05] MEDS: KLOR-CON PO SCH ×2 (14:44→21:39)
[2019-03-05] MEDS: ZOFRAN IV PRN (18:48)
[2019-03-06] MEDS ORDERED: CALMOSEPTINE OINTMENT TOP PRN (02:51)
--- NOTE | 2019-03-06 03:03 | PROGRESS NOTE ---
DATE: 03/06/2019 SUBJECTIVE: The patient is comfortable. No major issues overnight. Pain is improved control. OBJECTIVE: Vital Signs: Blood pressure 120/66, heart rate of 80, respiratory rate 16, temperature 98.3 degrees, O2 sat is 98% on room air. Cardiovascular: Regular rate and rhythm. Pulmonary: Bilateral breath sounds clear to auscultation. GI: Soft, nontender and nondistended. Bowel sounds are positive. LABORATORY DATA: White count 6, hemoglobin and hematocrit 10 and 32, platelets 269,000. Basic was normal except for potassium of 3.1. PROBLEM LIST: 1. Diverticular abscess most likely versus inflammatory bowel disease. We will continue empiric antibiotics. She is overall improved. CT shows improvement of abscess. We will continue to manage, right now we are going to focus on nonsurgical treatment. 2. Hypokalemia. We will continue to supplement and follow. 3. Retroperitoneal hematoma is stable currently. Follow H H. DISPOSITION: Continue with PT. The patient's preference is to go home with home PT so we will continue to follow closely. cc: Sid Lewis MD
[2019-03-06] MEDS: PRILOSEC PO SCH (06:01)
[2019-03-06] MEDS: ZOSYN 3.375 GM in NS 50 ML IV SCH ×4 (06:01→23:46)
--- NOTE | 2019-03-06 08:27 | GASTROENTEROLOGY PROGRESS NOTE ---
DATE: 03/05/2019 SUBJECTIVE: Patient resting in bed. She is feeling better. She does have episodic cramping in the abdomen. She has moved her bowels. It is soft brown. She continues to have poor oral intake. She was seen by DR. Taylor this morning, and the plan was for the patient to be discharged home on home antibiotics and do an outpatient colonoscopy in 3 to 4 weeks to evaluate terminal ileum and sigmoid colon, and based on that, DR. Taylor may perform resection of terminal ileum or sigmoid if necessary. I have discussed that with the patient and the family at bedside. The patient and family want stay 1 more day in the hospital to see how she does. She denies any fevers, rigors, chills. She continues to have abdominal pain in the left lower quadrant. OBJECTIVE: Vital signs: Temperature 98.2 degrees, pulse rate of 83, respiratory rate 18, blood pressure 128/63, saturating 100% room air. Weight: Body weight of 103 pounds 11.2 ounces, BMI 17.3 kg/m2. General Appearance: Thinly built, lying in bed, in no acute distress. HEENT: Pale conjunctivae. No icterus. Pupils equal, reactive to light. Neck: Supple. Abdomen: Discomfort in the left lower quadrant. No rebound. No guarding. Extremities: No cyanosis, clubbing. Neurologic: She is alert, awake, oriented x3. DIAGNOSTIC STUDIES: Her repeat CT scan was done yesterday, which showed stable left pelvic hematoma. This appears to be compressing the left ureter and reproducing mild hydronephrosis. Pelvic abscess which is slightly larger than on the previous study, but smaller than on 02/28/2019. She has bilateral pleural effusions, and she had removal of transgluteal tube which was placed previously and the abscess is measuring 5 x 4.6 cm at current study and the retroperitoneal hematoma in the left pelvic sidewall measuring 12.9 in anterior- posterior dimension and 2.8 cm in the transverse dimension. There is some presacral edema noted. There appears to be inflammation of distal ilium. Hemoglobin os 10.9, hematocrit 32.5, white count of 6.6, platelet count 269,000. Sodium 139, potassium 3.1, chloride 106, BUN 2, creatinine 0.3, Iron Percent saturation of 19, iron level of 20. AST 14, ALT 12, alkaline phosphatase 72, total protein 6, albumin of 2.5. Inflammatory bowel disease panel showed elevated level of Saccharomyces cerevisiae antibody IgG level of 43.7 - elevated, Saccharomyces cerevisiae antibody IgA is 13.9, which is normal, and neutrophil-specific antibody is negative. IMPRESSION AND PLAN: 1. Diverticulitis and intra-abdominal abscess. In this regard, she will continue on antibiotics per the primary team. She will be on antibiotics for 10 to 14 days. 2. Left pelvic wall hematoma secondary to drain placement. This is being monitored by the primary team. 3. 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 This will be evaluated on interval colonoscopy in 3 to 4 weeks of discharge. Most likely, the explanation of intra- abdominal abscesses could be diverticulitis and she is already on antibiotics and we will evaluate the colon 3 to 4 weeks. 4. Positive [facility] inflammatory bowel disease panel. Again, we will work this up as an outpatient on a colonoscopy. 5. Anemia. Continue to watch for now as the patient had a retroperitoneal bleed. 6. Chronic smoker. Patient counseled to quit smoking completely. 7. The patient had initial percutaneous pelvic drain placement on 03/01/2019, but it was removed. I have discussed the above case with the patient and family at bedside, and I also spoke with DR. Taylor. The patient will follow up in the clinic in 3 to 4 weeks of discharge. She will continue on MiraLAX once daily for bowel regimen. She will be on Prilosec once daily for GI prophylaxis. Currently she is on Zosyn IV per primary team. This has to be transitioned to oral medication per the primary team. Above plans discussed with the patient and also the patient's family, and all questions were answered. Please call with any questions or concerns. cc: MD Aren Smith MD MTDD
[2019-03-06] MEDS: KLOR-CON PO SCH ×2 (09:35→21:23)
[2019-03-06] MEDS: MIRALAX PO SCH (09:40)
[2019-03-06] MEDS: NORCO-10 PO PRN ×2 (09:41→18:09)
[2019-03-06] MEDS ORDERED: MIRALAX PO PRN (09:48)
--- NOTE | 2019-03-06 09:48 | PROVIDER PROGRESS NOTE ---
Progress Note S: No acute overnight events. Afebrile. No N/V. Tolerating PO. Minimal lower abdominal pain. LLE pain improving. Patient is ambulatory. She reports copious liquid diarrhea, which she attributes to taking miralax. O: Last Vital Signs Temp 98.4 F 03/06/19 08:00 Pulse 86 03/06/19 08:00 Resp 16 03/06/19 08:00 BP 128/69 03/06/19 08:00 Pulse Ox 97 03/06/19 08:00 Height 5 ft 5 in Weight 103 lb 11.2 oz GEN: awake, alert, NAD HEENT: anicteric, MMM NECK: supple, no jvd PULM: CTAB, no wheezing ABD: soft NT/ND, NABS, no rebound or guarding; left flank drain in place EXT: no cce LABS: 03/05/19 03/05/19 05:20 05:20 WBC 6.68 Hgb 10.9 L Plt Count 269 Sodium 139 Potassium 3.1 L Chloride 106 Carbon Dioxide 26 BUN 2 L Creatinine 0.3 L Glucose 119 H D A/P: Ms. Tania Alves is a 73 year old woman admitted with intra-abdominal abscess likely from diverticulitis vs. Crohn's ileitis. She is improving with antibiotics. Percutaneous pelvic drain was placed 03/01 c/b left RP bleed and anemia. She remains stable. Surgery following. Defer mgmt to surgery. # Intra-abdominal abscess: on abx as per primary; defer mgmt to Dr. Taylor # Question perforated diverticulitis vs Crohn's ileitis: cannot rule out malignancy; patient improving on antibiotics: typically, f/u colonoscopy is done at 6 weeks post-episode of acute diverticulitis; defer timing of colonoscopy to Dr. Honeycutt # Diarrhea: hold miralax in setting of diarrhea # Anemia: stable # RP bleed: hgb stable # Hypoglycemia: improved # Hypokalemia: replete lytes prn # Abnormal weight loss: EGD and colonoscopy was performed on 02/22; colonoscopy was aborted 2/2 poor prep in sigmoid colon Will sign off. Please call with questions
[2019-03-06] MEDS: POTASSIUM CHLORIDE 20 MEQ/SWI 20 MEQ/100 ML IVPB IV SCH ×2 (11:28→14:21)
[2019-03-06] MEDS ORDERED: IMODIUM PO PRN (12:37)
[2019-03-06] MEDS: D5 NS 1,000 ML IV SCH ×3 (12:47→23:47)
--- NOTE | 2019-03-06 13:23 | PROGRESS NOTE ---
DATE: 03/06/2019 SUBJECTIVE: Patient has no major complaints. She is complaining of diarrhea now, but I do not think she had a normal bowel movement before yesterday and she was not eating solid food until yesterday but she is very upset about the diarrhea, which I explained to her may be part of her disease process. OBJECTIVE: Blood pressure is 108/56, heart rate of 85, respiratory 18, temperature 95 degrees, 97% on room air.Cardiovascular: Regular rate and rhythm. Pulmonary: Bilateral breath sounds clear to auscultation. GI: Soft, nontender, nondistended. Bowel sounds are positive. She ate a good meal this morning. LABORATORY DATA: White count 6.6, hemoglobin and hematocrit 10 and 32, platelets 269,000. Potassium 3.1. PROBLEM LIST: 1. Diverticular abscess. We will continue antibiotics. Clinically, she seems to be improving. I think it will probably be okay from that standpoint. We can get an outpatient colonoscopy in 6 weeks. 2. Diarrhea. We will stop the MiraLAX. I will get a C. difficile just to be stable. DISPOSITION: I anticipate if she progresses with PT, the goal is to go home but we discussed that rehab may be the more realistic option, but she is looking at the different options. cc: Sid Lewis MD
[2019-03-06] MEDS: LACTINEX PO SCH (14:30)
--- NOTE | 2019-03-06 15:44 | GENERAL SURGERY PROGRESS NOTE ---
DATE: 03/06/2019 It is 3 o'clock in the afternoon. Ms. Alves continues to feel better. Abdomen is mildly tender but she is able to the eat solid food now. Her bowels have moved. She does report loose stools. Her white count was not checked today but has been back down the normal. I would recommend continuing with conservative therapy in the hopes that we can discharge her home on antibiotics, treat her as an outpatient, and then ultimately colonoscope her to understand better all the pathology that she has in both her colon and small bowel. cc: Jerardo Taylor MD
[2019-03-07 05:47] LABS: BASO# 0.02 X1000 (0.0-0.2); BASO% 0.3 % (0.0-0.8); EOS# 0.19 X1000 (0.0-0.7); EOS% 2.5 % (0.0-10.0); HEMATOCRIT 33.8 % (37.0-47.0); HEMOGLOBIN 10.9 g/dL (12.0-16.0); IMM GRAN# 0.02 X1000 (0.0-0.04); IMM GRAN% 0.3 % (0.0-0.5); LYMPH# 0.76 X1000 (1.2-3.4); MCH 29.1 PG (27-31); MCHC 32.2 g/dL (33-37); MCV 90.1 FL (81-99); MONO# 0.95 X1000 (0.11-0.59); MONO% 12.5 % (1.7-9.3); MPV 9.5 FL (7.4-10.4); NEUT# 5.68 X1000 (1.4-6.5); NEUT% 74.4 % (42.2-75.2); PLT 287 X1000 (130-400); RBC 3.75 XMIL (4.2-5.4); RDW 15.2 % (11.5-14.5); WBC 7.62 X1000 (4.8-10.8)
[2019-03-07 06:01] LABS: AGAP 6; BUN 2 mg/dL (8-22); CALCIUM 8.2 mg/dL (8.8-10.2); CHLORIDE 104 mmol/L (98-107); COSMO 270; CREATININE 0.3 mg/dL (0.5-0.9); ESTIMATED GFR > 60; GLUCOSE 101 mg/dL (70-104); POTASSIUM 4.8 mmol/L (3.5-5.1); SODIUM 137 mmol/L (136-145); TCO2 27 mmol/L (25-35)
[2019-03-07] MEDS: ZOSYN 3.375 GM in NS 50 ML IV SCH ×4 (06:42→23:42)
[2019-03-07] MEDS: PRILOSEC PO SCH (06:42)
[2019-03-07] MEDS: KLOR-CON PO SCH ×2 (09:25→21:22)
[2019-03-07] MEDS: LACTINEX PO SCH ×4 (09:25→17:31)
[2019-03-07] MEDS: D5 NS 1,000 ML IV SCH ×2 (12:30→17:29)
[2019-03-07] MEDS: NORCO-10 PO PRN ×2 (14:52→23:42)
--- NOTE | 2019-03-07 18:16 | PROGRESS NOTE ---
DATE: 03/07/2019 SUBJECTIVE: The patient has no major complaints. OBJECTIVE: Blood pressure is 108/53, heart rate 86, respiratory rate 16, temperature 98.2 degrees.Cardiovascular: Regular rate and rhythm. Pulmonary: Bilateral breath sounds, clear to auscultation. GI: Soft, nontender, nondistended. Bowel sounds are positive. LABORATORY DATA: White count 7, hemoglobin and hematocrit 10 and 33, platelets 287,000. Basic was normal. Again, her abscess grew out Klebsiella pneumoniae. ASSESSMENT AND PLAN: Problem list: 1. Diverticular abscess with Klebsiella pneumoniae. She is on antibiotics, which I think right now is Zosyn. Based on sensitivities, she could go home on Augmentin. It is sensitive to ampicillin, sulbactam, Levaquin or Keflex, but I think Augmentin would be a better choice, for at least another 10 days, maybe even 14 days I would treat at the discretion the next provider, of course. When Surgery feels stable for her discharge, she can go home. 2. Diarrhea. That stopped, fortunately, so I do not think she has Clostridium difficile. 3. Disposition she did much better with physical therapy today. She is motivated to go home. We are going to give her antibiotics for another 48 hours and I think, again, she could go home on Augmentin for another 10 to 14 days. cc: Sid Lewis MD
--- NOTE | 2019-03-07 19:37 | GENERAL SURGERY PROGRESS NOTE ---
DATE: 03/07/2019 SUBJECTIVE: Ms. Alves continues to report feeling better. She is afebrile with stable hemodynamics. She is eating solid food. From my perspective, she has can go home on p.o. antibiotics. I think she is planning on leaving on Tuesday which is perfectly fine. I will then follow her up in the office. Her abdomen continues to be minimally tender. Her CBC remains normal. cc: Jerardo Taylor MD
[2019-03-08] MEDS: ZOSYN 3.375 GM in NS 50 ML IV SCH ×4 (01:15→17:13)
[2019-03-08 06:00] LABS: BASO# 0.02 X1000 (0.0-0.2); BASO% 0.2 % (0.0-0.8); EOS# 0.26 X1000 (0.0-0.7); EOS% 2.8 % (0.0-10.0); HEMATOCRIT 33.2 % (37.0-47.0); HEMOGLOBIN 10.6 g/dL (12.0-16.0); IMM GRAN# 0.02 X1000 (0.0-0.04); IMM GRAN% 0.2 % (0.0-0.5); LYMPH# 1.01 X1000 (1.2-3.4); MCHC 31.9 g/dL (33-37); MONO# 0.86 X1000 (0.11-0.59); MONO% 9.3 % (1.7-9.3); MPV 9.3 FL (7.4-10.4); NEUT# 7.03 X1000 (1.4-6.5); NEUT% 76.5 % (42.2-75.2); PLT 327 X1000 (130-400); RBC 3.65 XMIL (4.2-5.4); RDW 15.6 % (11.5-14.5)
[2019-03-08] MEDS: PRILOSEC PO SCH (06:03)
[2019-03-08 06:53] LABS: AGAP 9; BUN 4 mg/dL (8-22); CALCIUM 7.9 mg/dL (8.8-10.2); CHLORIDE 104 mmol/L (98-107); COSMO 276; CREATININE 0.3 mg/dL (0.5-0.9); ESTIMATED GFR > 60; GLUCOSE 88 mg/dL (70-104); POTASSIUM 4.6 mmol/L (3.5-5.1); SODIUM 140 mmol/L (136-145); TCO2 27 mmol/L (25-35)
[2019-03-08] MEDS: KLOR-CON PO SCH ×2 (08:54→21:33)
[2019-03-08] MEDS: NORCO-10 PO PRN ×3 (08:54→21:35)
[2019-03-08] MEDS: LACTINEX PO SCH ×3 (08:55→17:13)
--- NOTE | 2019-03-08 10:04 | PROGRESS NOTE ---
DATE: 03/08/2019 SUBJECTIVE: Ms. Alves is feeling better. Her tummy is feeling much better. She has just a little bit of pressure in the lower abdomen. OBJECTIVE: Vital signs: Temperature 98.3 degrees, pulse 88, respirations 16, blood pressure 108/61. HEENT: Pupils are equal and round. Lungs: Clear in all lung [place]. Cardiovascular: Regular rhythm and rate without murmur or S3. Abdomen: Soft. Skin: Warm and dry. Genitourinary: Urine output is 6100 mL. ASSESSMENT AND PLAN: 1. Diverticular abscess with Klebsiella pneumoniae. She has antibiotics and is on Zosyn. Based on sensitivities, could maybe go home on Augmentin. It is sensitive to ampicillin, sulbactam, Levaquin and Keflex, so hopefully she can go home tomorrow on p.o. Augmentin. 2. Diarrhea, which is improved. 3. Disposition. Continue physical therapy. CURRENT ORDERS: I do not see any change. cc: Alon Razo MD
--- NOTE | 2019-03-08 19:54 | GENERAL SURGERY PROGRESS NOTE ---
DATE: 03/08/2019 Ms. Alves continues to progress well. She has been ambulatory today. She is eating solid food. Her exam was essentially the same. She is to be discharged tomorrow on antibiotics. I will follow up with her in my office. cc: Jerardo Taylor MD
[2019-03-09] MEDS: ZOSYN 3.375 GM in NS 50 ML IV SCH ×2 (01:15→06:55)
[2019-03-09] MEDS: PRILOSEC PO SCH (07:00)
[2019-03-09] MEDS: NORCO-10 PO PRN (07:01)
[2019-03-09] MEDS: KLOR-CON PO SCH (08:38)
[2019-03-09] MEDS: LACTINEX PO SCH (08:39)
--- NOTE | 2019-03-09 11:01 | DISCHARGE SUMMARY ---
ADMISSION DATE: 02/28/2019 DISCHARGE DATE: 03/09/2019 PHYSICIAN: Dr. Aren Clemons. HISTORY OF PRESENT ILLNESS: The patient came in with abdominal pain, 73-year-old female, with no history of diverticulitis, has a history of hypertension, presented with abdominal paint that had been going on for about a month. Apparently, according to the daughter and patient she underwent colonoscopy about a week ago and apparently there was some difficulty passing the scope. The report was not available on admission. A CT set up the following day revealed a lot of sigmoid thickening, evidence of diverticulitis, and likely abscess. PAST MEDICAL HISTORY: Hypertension. PAST SURGICAL HISTORY: Tubal ligation 55 years ago. HOSPITAL COURSE: Admitted with diverticular abscess. Surgery was consulted. Started on antibiotics. Dr. Jerardo Taylor evaluated for probable diverticular disease with complication being stricture and abscess. She had abdominal and pelvic CT repeated 03/01/2019, and was wondering if it was a post procedure retroperitoneal hematoma, with slightly smaller drainage catheter approximately stable position. The pelvic abscess had diminished. GI was consulted, Dr. Garrett, for diverticular abscess seen on CT scan. Dr. Taylor's impression was terminal ileal stricture, Crohn's disease, so she did come in for CT-guided drainage and was kept on empiric antibiotics. Repeat abdominal CT scan on 03/05, stable left pelvic hematoma, it appeared to be compressing the left ureter, maybe producing a mild degree of hydronephrosis, pelvic abscess slightly larger than previous study, but smaller than seen on 02/28/2019, so, it appears that she had diverticulitis with intra-abdominal abscess and seemed to improve with antibiotics, left pelvic wall hematoma secondary to drain placement, which is improving, terminal ileitis, possible terminal ileal stricture, questionable fistula contributing to possibility of left lower quadrant abscess, although less likely. The plan is to re-evaluate in 3 or 4 weeks with a colonoscopy, I believe. Explanation of intra-abdominal abscess could be diverticulitis. She is better and would like to go home, advanced her diet, and so we will plan to discharge her home on 03/09/2019. Discharge medications, she gets [place] 10 mg q.6 hours p.r.n. I think she is seen at a pain clinic. She is on lactobacillus 1 tablet t.i.d. She has Imodium p.r.n. NicoDerm patch 14 mg daily. We will put her on Augmentin 875 mg p.o. b.i.d. and keep her on that for another 2 weeks. She is to follow up with GI and to follow up with primary care. cc: Alon Razo MD
--- NOTE | 2019-03-09 11:23 | GENERAL SURGERY PROGRESS NOTE ---
DATE: 03/09/2019 She remains afebrile. Her temp was 99.2 degrees max. She feels fine. Her abdomen is minimally tender. Her white count is okay. She continues to eat. So it is okay with me that she be discharged home on p.o. antibiotics. I have asked to see her back in a week. She understands that if she loses ground or regresses as an outpatient, we might have to intervene operatively sooner than we want to. cc: Jerardo Taylor MD
[2019-03-09 11:54] VITALS: BP 118/55
== END 2019-03-09 12:21 | disposition home health service (06) | DRG 391 ==
LOC: 3N 20:07 → 2N 03-01 15:07 → 4N 03-04 17:17
PROVIDERS: ATTEND Emergency Medicine

== ENCOUNTER 2019-03-29 09:03 | Inpatient (IN) ==
--- NOTE | 2019-03-29 11:41 | EKG Report ---
Test Performed on : 03/29/2019 11:35:02 AM Test Reason : chest pain Blood Pressure : / mmHG Vent. Rate : 093 BPM Atrial Rate : 093 BPM P-R Int : 118 ms QRS Dur : 074 ms QT Int : 358 ms P-R-T Axes : 012 063 053 degrees QTc Int : 445 ms Normal sinus rhythm. Normal ECG No previous ECGs available Confirmed by Sincere DOUGLAS, Gio Gomez ([id number]) on 03/29/2019 5:59:12 PM
[2019-03-29] MEDS: POTASSIUM CHLORIDE 10 MEQ in NS 1,000 ML IV SCH (12:50)
[2019-03-29] MEDS: LOVENOX SUBQ SCH (12:51)
[2019-03-29] MEDS: ZOSYN 3.375 GM in NS 50 ML IV SCH ×2 (12:52→18:48)
[2019-03-29 15:06] LABS: BASO# 0.02 X1000 (0.0-0.2); BASO% 0.2 % (0.0-0.8); EOS# 0.14 X1000 (0.0-0.7); EOS% 1.6 % (0.0-10.0); HEMATOCRIT 33.2 % (37.0-47.0); HEMOGLOBIN 10.4 g/dL (12.0-16.0); LYMPH# 1.23 X1000 (1.2-3.4); LYMPH% 14.1 % (20.5-51.1); MCH 28.9 PG (27-31); MCHC 31.3 g/dL (33-37); MCV 92.2 FL (81-99); MONO# 0.81 X1000 (0.11-0.59); MONO% 9.3 % (1.7-9.3); MPV 9.4 FL (7.4-10.4); NEUT# 6.52 X1000 (1.4-6.5); NEUT% 74.8 % (42.2-75.2); PLT 425 X1000 (130-400); RDW 15.8 % (11.5-14.5); WBC 8.72 X1000 (4.8-10.8)
[2019-03-29 15:07] LABS: AGAP 20; BUN 3 mg/dL (8-22); CHLORIDE 94 mmol/L (98-107); COSMO 274; CREATININE 0.3 mg/dL (0.5-0.9); GLUCOSE 88 mg/dL (70-104); POTASSIUM 2.9 mmol/L (3.5-5.1); SODIUM 139 mmol/L (136-145); TCO2 25 mmol/L (25-35)
[2019-03-29 15:08] LABS: ALB/GLOB RATIO 0.7; ALBUMIN 2.5 g/dL (3.5-5.0); ALKALINE PHOSPHATASE 80 U/L (32-104); CALCIUM 8.5 mg/dL (8.8-10.2); ESTIMATED GFR > 60; GOT 56 U/L (10-30); GPT 29 U/L (10-36); TOTAL BILIRUBIN 0.37 mg/dL (0.20-1.00); TOTAL PROTEIN 6.2 g/dL (6.3-8.3)
[2019-03-29] MEDS: NORCO-7.5 PO PRN ×3 (15:33→21:01)
[2019-03-29] MEDS: POTASSIUM CHLORIDE 20 MEQ/SWI 20 MEQ/100 ML IVPB IV SCH ×2 (15:48→20:50)
--- NOTE | 2019-03-29 15:54 | Diag Imaging Result Doc PS360 ---
EXAM: FLAT/UPRIGHT ABD/1 VIEW CHEST - 03/29/2019 HISTORY: crampy abd pain TECHNIQUE: Portable supine and upright abdomen and one view chest COMPARISON: 03/24/2019 one view chest FINDINGS: There is gas visible in nondistended colon. There is gas visible in nondistended to slightly distended small bowel. There is no free air identified. Upright chest shows normal heart size. There is stable mild tortuosity of the thoracic aorta. Lungs appear clear except for stable slight linear scarring. There is no pleural effusion or pneumothorax identified. IMPRESSION: Nonspecific bowel gas pattern. No evidence of acute cardiopulmonary disease. Electronically signed by Raphael Meza 03/29/2019 3:52 PM
[2019-03-29 16:00] LABS: EOS 1 % (1-10); LYMPHS 15 % (21-51); MONO 3 % (1-9); SEGS 81 % (42-75)
[2019-03-29 16:10] LABS: URINE SOURCE CLEAN CATCH
[2019-03-29 16:19] LABS: BILIRUBIN URINE NEGATIVE (NEGATIVE); BLOOD URINE NEGATIVE (NEGATIVE); COLOR YELLOW; GLUCOSE URINE NEGATIVE (NEGATIVE); KETONE URINE >150 mg/dL (NEGATIVE); LEUKOCYTES URINE SMALL (NEGATIVE); NITRITE URINE NEGATIVE (NEGATIVE); PH URINE 6.5; PROTEIN URINE 50 mg/dL (NEGATIVE); SP GRAVITY URINE 1.026; TURBIDITY URINE CLEAR (CLEAR); UROBILINOGEN URINE 3 mg/dL (NORMAL)
[2019-03-29 16:20] LABS: UR EPITHELIAL CELLS >10 /HPF (<10); URINE BACTERIA NEGATIVE /HPF; URINE RBC <10 /HPF (<10); URINE WBC <10 /HPF (<10)
--- NOTE | 2019-03-29 18:34 | HISTORY AND PHYSICAL ---
CHIEF COMPLAINT: Abdominal pain. HISTORY: This is a pleasant 73-year-old female, who was hospitalized in February with crampy abdominal pain. She was found to have a thick walled ilium, a pelvic abscess and some diverticula. The source of her abscess was of uncertain as to whether it was due to her diverticula or her ileitis. She was not able to be colonoscoped prior to her admission by Dr. Honeycutt due to poor prep and plans were for colonoscopy in the future in about 2 to 3 weeks, but due to her recurrent symptoms this past and her recurrent crampy pain, she is admitted. This past Tuesday she was taken to the emergency room for abdominal pain, feeling poorly and fever. She was placed on Augmentin at that time. She had a CT scan which showed a reduction in the size of her abscess as compared to back in February. However, she continues to have crampy abdominal pain so she is admitted for evaluation and treatment. Her past history is pertinent for hypertension. She is followed by Dr. Aren Clemons. PAST SURGICAL HISTORY: Previous surgery includes a tubal ligation long ago. MEDICATIONS: Her medications include Inderal for hypertension and she has been on Augmentin this past week. SOCIAL HISTORY: She does smoke a couple cigarettes a day. Denies alcohol use. Has an attentive family. Denies any illicit drug use utilization. She is . ALLERGIES: She has no known drug allergies. FAMILY HISTORY: Pertinent for colon cancer, coronary artery disease. REVIEW OF SYSTEMS: A 10 point review of systems is negative except as noted above in the history of Present Illness. PHYSICAL EXAMINATION: VITAL SIGNS: Her temperature is 98.3 degrees, heart rate 87, blood pressure 142/74. NECK: She has no cervical adenopathy. LUNGS: Bilateral breath sounds are present. HEART: Regular rate and rhythm. ABDOMEN: Soft. It is mildly tender to the right of the midline below her umbilicus. I do not palpate a mass, but I did not press hard. EXTREMITIES: She has femoral pulses and pedal pulses. No peripheral edema. NEUROLOGIC: She is awake and alert. LYMPHATIC SYSTEM: Negative. ENDOCRINE SYSTEM: Negative. INTEGUMENTARY SYSTEM: Negative. LABORATORY DATA: Her white count is 8700, hemoglobin 10.4, hematocrit 33, potassium 2.9. ASSESSMENT: This lady continues to have symptoms regarding her abdominal process. The family is interested in us pursuing surgery at this time while she is here and removing whatever pathology she has. So we will get further evaluation and get an x-ray of her abdomen and then start looking at possible surgical intervention after we are able to prep her bowel. cc: Jerardo Taylor MD
[2019-03-29] MEDS: ZOFRAN IV PRN (20:44)
[2019-03-29] MEDS ORDERED: BLISTEX MEDICATED BERRY LIP BALM TOP PRN (21:03)
[2019-03-30] MEDS: NORCO-7.5 PO PRN ×6 (03:30→22:51)
[2019-03-30] MEDS: ZOSYN 3.375 GM in NS 50 ML IV SCH ×4 (04:00→21:45)
[2019-03-30 07:09] LABS: BASO# 0.02 X1000 (0.0-0.2); BASO% 0.2 % (0.0-0.8); EOS# 0.29 X1000 (0.0-0.7); HEMATOCRIT 34.3 % (37.0-47.0); HEMOGLOBIN 10.9 g/dL (12.0-16.0); LYMPH# 0.82 X1000 (1.2-3.4); LYMPH% 8.4 % (20.5-51.1); MCH 29.1 PG (27-31); MCHC 31.8 g/dL (33-37); MCV 91.7 FL (81-99); MONO# 0.92 X1000 (0.11-0.59); MONO% 9.4 % (1.7-9.3); MPV 9.4 FL (7.4-10.4); NEUT# 7.72 X1000 (1.4-6.5); PLT 431 X1000 (130-400); RBC 3.74 XMIL (4.2-5.4); WBC 9.77 X1000 (4.8-10.8)
[2019-03-30 07:29] LABS: AGAP 12; BUN 4 mg/dL (8-22); CALCIUM 7.9 mg/dL (8.8-10.2); CHLORIDE 99 mmol/L (98-107); COSMO 270; CREATININE 0.3 mg/dL (0.5-0.9); ESTIMATED GFR > 60; GLUCOSE 81 mg/dL (70-104); POTASSIUM 3.2 mmol/L (3.5-5.1); SODIUM 137 mmol/L (136-145); TCO2 26 mmol/L (25-35)
[2019-03-30] MEDS: POTASSIUM CHLORIDE 10 MEQ in NS 1,000 ML IV SCH ×2 (07:40→10:27)
[2019-03-30] MEDS: PRILOSEC PO SCH (08:56)
[2019-03-30] MEDS ORDERED: CLINIMIX E 4.25%-5% SOLUTION 1,000 ML IV SCH (09:30)
[2019-03-30] MEDS: ZOFRAN IV PRN ×4 (09:34→22:51)
[2019-03-30] MEDS: CLINIMIX E 4.25%-5% SOLUTION 1,000 ML IV SCH (10:27)
[2019-03-30] MEDS: LOVENOX SUBQ SCH (12:19)
--- NOTE | 2019-03-30 15:38 | GENERAL SURGERY PROGRESS NOTE ---
DATE: 03/30/2019 Ms. Alves is feeling somewhat better. Her white count is 9800. Potassium is up to 3.2. PLAN: The plan will be to operate on Tuesday the . We will start her on Clinimix. Encourage her to ambulate some. cc: Jerardo Taylor MD
[2019-03-31] MEDS: CLINIMIX E 4.25%-5% SOLUTION 1,000 ML IV SCH ×2 (03:00→19:06)
[2019-03-31] MEDS: ZOSYN 3.375 GM in NS 50 ML IV SCH ×4 (04:34→21:39)
[2019-03-31] MEDS: NORCO-7.5 PO PRN ×6 (04:34→22:59)
[2019-03-31] MEDS: ZOFRAN IV PRN ×5 (04:34→22:59)
[2019-03-31] MEDS: PRILOSEC PO SCH (08:57)
[2019-03-31] MEDS: LOVENOX SUBQ SCH (11:20)
--- NOTE | 2019-03-31 11:33 | GENERAL SURGERY PROGRESS NOTE ---
DATE: 03/31/2019 Ms. Alves says that she feels better. She is afebrile. Heart rate is 78. Blood pressure is 117/67. Intake was 3786 and output was not recorded. The plan will be to do a conventional bowel prep tomorrow with p.o. antibiotics in preparation for surgery on Tuesday. She continues on Clinimix. She has been up and ambulating some. cc: Jerardo Taylor MD
[2019-03-31] MEDS: POTASSIUM CHLORIDE 10 MEQ in NS 1,000 ML IV SCH (19:05)
[2019-04-01] MEDS: ZOSYN 3.375 GM in NS 50 ML IV SCH ×4 (02:36→20:07)
[2019-04-01] MEDS: NORCO-7.5 PO PRN ×4 (06:34→18:27)
[2019-04-01] MEDS: ZOFRAN IV PRN ×5 (06:35→20:55)
[2019-04-01 06:56] LABS: BASO# 0.03 X1000 (0.0-0.2); BASO% 0.4 % (0.0-0.8); EOS# 0.27 X1000 (0.0-0.7); EOS% 3.7 % (0.0-10.0); HEMATOCRIT 30.3 % (37.0-47.0); HEMOGLOBIN 9.3 g/dL (12.0-16.0); LYMPH% 16.6 % (20.5-51.1); MCH 28.9 PG (27-31); MCHC 30.7 g/dL (33-37); MCV 94.1 FL (81-99); MONO# 0.67 X1000 (0.11-0.59); MONO% 9.3 % (1.7-9.3); MPV 9.2 FL (7.4-10.4); NEUT# 5.07 X1000 (1.4-6.5); PLT 386 X1000 (130-400); RBC 3.22 XMIL (4.2-5.4); WBC 7.24 X1000 (4.8-10.8)
[2019-04-01 07:12] LABS: AGAP 10; BUN 7 mg/dL (8-22); CALCIUM 7.4 mg/dL (8.8-10.2); CHLORIDE 100 mmol/L (98-107); COSMO 271; CREATININE 0.3 mg/dL (0.5-0.9); ESTIMATED GFR > 60; GLUCOSE 78 mg/dL (70-104); POTASSIUM 3.3 mmol/L (3.5-5.1); SODIUM 137 mmol/L (136-145); TCO2 27 mmol/L (25-35)
[2019-04-01] MEDS: PRILOSEC PO SCH ×2 (07:48→10:19)
--- NOTE | 2019-04-01 09:16 | GENERAL SURGERY PROGRESS NOTE ---
DATE: 04/01/2019 She feels better today. She is afebrile with stable hemodynamics. We will do a mechanical bowel prep today with some p.o. antibiotics as well. I have discussed the planned procedure with her with plans to remove the distal ilium, drain the abscess if needed, and then decide about need for sigmoid resection that we based on from the findings at the time of the surgery. She understands that. We discussed benefits and risks, the possible need to go into intensive care unit afterwards. She understands all this. She wants to proceed. cc: Jerardo Taylor MD
[2019-04-01] MEDS ORDERED: GOLYTELY PO ONE (10:02)
[2019-04-01] MEDS: LOVENOX SUBQ SCH (12:10)
[2019-04-01] MEDS: POTASSIUM CHLORIDE 20 MEQ/SWI 20 MEQ/100 ML IVPB IV SCH ×2 (12:10→17:19)
[2019-04-01] MEDS: NEOMYCIN PO SCH ×2 (13:21→14:00)
[2019-04-01] MEDS: ERYTHROMYCIN BASE PO SCH ×2 (13:21→14:00)
[2019-04-01] MEDS: CLINIMIX E 4.25%-5% SOLUTION 1,000 ML IV SCH (13:22)
[2019-04-01] MEDS ORDERED: NS 500 ML IV SCH (20:15)
[2019-04-01] MEDS: POTASSIUM CHLORIDE 10 MEQ in NS 1,000 ML IV SCH (23:26)
[2019-04-02] MEDS ORDERED: CALMOSEPTINE OINTMENT TOP PRN (00:03)
[2019-04-02] MEDS: ERYTHROMYCIN BASE PO SCH (01:25)
[2019-04-02] MEDS: NEOMYCIN PO SCH (01:25)
[2019-04-02] MEDS: ZOSYN 3.375 GM in NS 50 ML IV SCH ×4 (02:51→20:31)
[2019-04-02] MEDS ORDERED: FENTANYL ONE ×2 (08:00→10:14)
[2019-04-02] MEDS ORDERED: DIPRIVAN 1% ONE (08:00)
[2019-04-02] MEDS ORDERED: XYLOCAINE-MPF 2% ONE (08:02)
[2019-04-02] MEDS ORDERED: NORCURON ONE (08:02)
[2019-04-02] MEDS ORDERED: QUELICIN (DOSE) ONE (08:02)
[2019-04-02] MEDS ORDERED: SODIUM CHLORIDE 0.9% 10 ML ONE (08:02)
[2019-04-02] MEDS: PRILOSEC PO SCH (08:18)
[2019-04-02] MEDS ORDERED: MARCAINE 0.25% PF ONE (08:59)
[2019-04-02] MEDS ORDERED: EXPAREL 1.3% ONE (09:00)
[2019-04-02 10:27] LABS: URINE SOURCE CATH
[2019-04-02 10:31] LABS: BILIRUBIN URINE NEGATIVE (NEGATIVE); BLOOD URINE NEGATIVE (NEGATIVE); COLOR STRAW; GLUCOSE URINE NEGATIVE (NEGATIVE); KETONE URINE 40 mg/dL (NEGATIVE); LEUKOCYTES URINE NEGATIVE (NEGATIVE); NITRITE URINE NEGATIVE (NEGATIVE); PH URINE 5.5; PROTEIN URINE NEGATIVE (NEGATIVE); SP GRAVITY URINE 1.007; TURBIDITY URINE HAZY (CLEAR); UR EPITHELIAL CELLS <10 /HPF (<10); URINE BACTERIA NEGATIVE /HPF; URINE RBC <10 /HPF (<10); URINE WBC <10 /HPF (<10); UROBILINOGEN URINE NORMAL (NORMAL)
[2019-04-02] MEDS ORDERED: OFIRMEV 1000 MG/ISOTONIC SOLN 1,000 MG/100 ML BOTTLE ONE (10:50)
[2019-04-02] MEDS ORDERED: DECADRON ONE (10:50)
[2019-04-02] MEDS ORDERED: ZOFRAN ONE (10:50)
[2019-04-02] MEDS: DILAUDID ONE ×2 (12:13→12:21)
[2019-04-02] MEDS ORDERED: MORPHINE ONE (12:21)
[2019-04-02] MEDS: LOVENOX SUBQ SCH (15:28)
[2019-04-02] MEDS: DILAUDID IV PRN ×2 (15:32→20:27)
[2019-04-02] MEDS: ZOFRAN IV PRN (15:33)
--- NOTE | 2019-04-02 17:09 | OPERATIVE NOTE ---
PROCEDURE DATE: 04/02/2019 NAME OF PROCEDURE: 1. Exploratory laparotomy. 2. Ileal cecectomy. 3. Low anterior sigmoid colon resection. 4. Drainage of pelvic abscess. SURGEON: Jerardo Taylor MD. GREEN BUILDING MATERIALS DESIGNER: Dr. Vega who was present throughout the completion of the operation, was valuable in exposure, dissection, anastomoses and closure. PREOP DIAGNOSIS: 1. Terminal ileitis with partial obstruction. 2. Diverticulosis with possible diverticulitis . 3. Pelvic abscess. POSTOPERATIVE DIAGNOSIS: 1. Terminal ileitis with partial obstruction. 2. Diverticulosis with possible diverticulitis. 3. Pelvic abscess. DESCRIPTION OF PROCEDURE: Satisfactory general endotracheal anesthesia was achieved. The patient was placed in Alon stirrups. The abdomen was prepped and draped in a sterile fashion. The patient had already undergone a TAP block by the anesthesiologist. After the abdomen was prepped and draped we then made a midline incision carried our incision through the subcutaneous tissue and through the midline fascia, entering the abdominal cavity to extend the skin incision. Upon entering the abdominal cavity we identified dilated small bowel with fluid and fluid within the stomach as well. We followed the small bowel down to the ilium where we noted that a segment was very thickened abnormal and in the pelvis and stuck in the pelvis. We bluntly dissected the loop of ilium out of the pelvis exposing the underlying resolving pelvic abscess. We then mobilized the cecum and up to near the hepatic flexure taking the ascending colon out of the retroperitoneum in order to allow us to do an ileal cecectomy. We identified the abnormal segment. We chose the small bowel proximal to the abnormal ilium, cleaned it off and divided it with a LORRAINE 80 blue cartridge. We then identified the ascending colon just distal to the cecum cleaned it off and also divided it there with a LORRAINE 80 mm blue cartridge. We then divided the mesentery using the LigaSure except at the very apical portion and there we clamped and divided it suture ligating the vessels with 2-0 silk suture ligature. We continued through the mesentery until we completely resected this segment of the ileum and cecum. This was handed off. We then approximated the proximal ilium to the ascending colon and then we turned our attention to the pelvis we placed the patient in Trendelenburg. We then dissected this sigmoid colon and the mesentery was extremely thick so we could not guarantee that there was not diverticular disease as the cause of the pelvic abscess so we scored the peritoneum lateral to the sigmoid down into the pelvis. We then chose a spot proximal to the very abnormal thickened mesentery and used a LORRAINE 80 blue cartridge again to divide the proximal sigmoid. We scored the perineum on the other side and then used the LigaSure to dissect the sigmoid colon all the way down to the low sigmoid proximal rectal area. Here we felt that the bowel had normalized again in texture and was suitable for anastomosis. We had to go up and mobilize the splenic flexure in order to bring the descending colon down into the pelvis. We spared the left colic vessels. After we mobilized that we then began in a 2 layered anastomosis. The back of the proximal rectum was exposed and we then used 3- 0 silks in the seromuscular layer to construct the posterior layer of our anastomosis. We then amputated the abnormal sigmoid segment. We used a Letha clamp to spread the rectum because it was somewhat small since it had not been able to have a normal size fecal matter. We then after the posterior layer was constructed cut off the staple line proximally and then used a 3-0 Polysorb running locking stitch posteriorly, changed to a Lowry stitch anteriorly to construct the inner layer and then finally a 3-0 silks in a Lembert fashion to finish the 2 layered end to end anastomosis. At this point we changed gloves and rid ourselves of the contaminated instruments. We turned our attention then to the proximal ilium and the proximal ascending colon that we had approximated. As these were approximated we then isolated them with laps and cut off the corners of the bowel and used again a LORRAINE 80 mm blue cartridge to do a [id number] stapled anastomosis. We grasped the open end of the bowel with Allis and used a TA 60 blue cartridge to staple off the open end of the bowel. We then used 3-0 silks in a Lembert fashion to invert the staple line. We changed gloves again at this point and rid ourselves again of the contaminated instruments, obtained a new suction catheter. We closed the mesentery then with interrupted 3-0 silks. We then copiously irrigated the abdominal cavity and we placed a Adithya drain within the pelvis where the abscess had been. We returned the small bowel to the abdominal cavity. We looked at both the gutters and aspirated fluid, hemostasis was satisfactory. An NG tube was placed in the stomach and the stomach was decompressed. We then laid the omentum back over the small bowel and proceeded to close the anterior peritoneum with a 2-0 chromic. We closed the fascia running #2 Prolene. We irrigated out subcutaneous tissue and closed the skin with giorgi. A 2-0 silk was used to secure the drain at the skin level. Sterile dressing was applied. She tolerated it well. Was sent to the recovery room in satisfactory condition. cc: MD Dr. Deonte Peraza
[2019-04-02] MEDS: PERIDEX MT SCH (20:34)
[2019-04-03] MEDS: CLINIMIX E 4.25%-5% SOLUTION 1,000 ML IV SCH ×4 (01:47→19:18)
[2019-04-03] MEDS: DILAUDID IV PRN ×7 (01:47→21:35)
[2019-04-03] MEDS: ZOSYN 3.375 GM in NS 50 ML IV SCH ×3 (03:11→18:21)
[2019-04-03 07:03] LABS: AGAP 13; BUN 12 mg/dL (8-22); CHLORIDE 100 mmol/L (98-107); COSMO 280; CREATININE 0.5 mg/dL (0.5-0.9); ESTIMATED GFR > 60; GLUCOSE 147 mg/dL (70-104); POTASSIUM 5.1 mmol/L (3.5-5.1); SODIUM 139 mmol/L (136-145); TCO2 26 mmol/L (25-35)
[2019-04-03] MEDS: DILAUDID ONE (07:03)
[2019-04-03 07:04] LABS: BASO# 0.01 X1000 (0.0-0.2); BASO% 0.1 % (0.0-0.8); HEMATOCRIT 26.7 % (37.0-47.0); HEMOGLOBIN 8.2 g/dL (12.0-16.0); IMM GRAN# 0.14 X1000 (0.0-0.04); IMM GRAN% 0.8 % (0.0-0.5); LYMPH# 0.95 X1000 (1.2-3.4); LYMPH% 5.1 % (20.5-51.1); MCH 28.1 PG (27-31); MCHC 30.7 g/dL (33-37); MCV 91.4 FL (81-99); MONO# 1.15 X1000 (0.11-0.59); MONO% 6.2 % (1.7-9.3); MPV 9.5 FL (7.4-10.4); NEUT# 16.36 X1000 (1.4-6.5); NEUT% 87.8 % (42.2-75.2); PLT 489 X1000 (130-400); RBC 2.92 XMIL (4.2-5.4); RDW 16.7 % (11.5-14.5); WBC 18.61 X1000 (4.8-10.8)
[2019-04-03] MEDS: PERIDEX MT SCH ×2 (08:50→21:35)
[2019-04-03] MEDS: PRILOSEC PO SCH (10:02)
[2019-04-03] MEDS: LOVENOX SUBQ SCH (10:56)
--- NOTE | 2019-04-03 12:08 | GENERAL SURGERY PROGRESS NOTE ---
DATE: 04/03/2019 SUBJECTIVE: Ms. Alves is awake and alert, and doing well. She has heart rate 91 and blood pressure 119/66. She has good breath sounds bilaterally. Abdomen was quiet. NG has little output today. Her urine output appears adequate. Her drain is serous. LABORATORY DATA: [place] [address], hemoglobin 8.2, hematocrit 26, potassium 5.1 today. BUN 12. Creatinine 0.5. ASSESSMENT: Satisfactory progress. We will let her have ice chips. She was to set up on the side of the bed. cc: Jerardo Taylor MD
[2019-04-04] MEDS: DILAUDID IV PRN ×5 (00:43→23:51)
[2019-04-04] MEDS: ZOSYN 3.375 GM in NS 50 ML IV SCH ×4 (00:43→20:51)
[2019-04-04] MEDS: POTASSIUM CHLORIDE 10 MEQ in NS 1,000 ML IV SCH ×2 (06:00→06:13)
[2019-04-04 07:12] LABS: BASO# 0.02 X1000 (0.0-0.2); BASO% 0.2 % (0.0-0.8); EOS# 0.02 X1000 (0.0-0.7); EOS% 0.2 % (0.0-10.0); HEMATOCRIT 21.7 % (37.0-47.0); HEMOGLOBIN 6.6 g/dL (12.0-16.0); LYMPH# 0.62 X1000 (1.2-3.4); MCH 28.8 PG (27-31); MCHC 30.4 g/dL (33-37); MCV 94.8 FL (81-99); MONO# 0.71 X1000 (0.11-0.59); MONO% 6.8 % (1.7-9.3); MPV 9.4 FL (7.4-10.4); NEUT# 9.05 X1000 (1.4-6.5); NEUT% 86.8 % (42.2-75.2); PLT 376 X1000 (130-400); RBC 2.29 XMIL (4.2-5.4); RDW 17.3 % (11.5-14.5); WBC 10.42 X1000 (4.8-10.8)
[2019-04-04 07:20] LABS: AGAP 8; BUN 11 mg/dL (8-22); CALCIUM 7.9 mg/dL (8.8-10.2); CHLORIDE 101 mmol/L (98-107); COSMO 277; CREATININE 0.2 mg/dL (0.5-0.9); ESTIMATED GFR > 60; GLUCOSE 102 mg/dL (70-104); POTASSIUM 4.3 mmol/L (3.5-5.1); SODIUM 139 mmol/L (136-145); TCO2 30 mmol/L (25-35)
[2019-04-04] MEDS ORDERED: NS 500 ML IV ONE (08:00)
[2019-04-04] MEDS ORDERED: NS 500 ML ONE (08:11)
[2019-04-04] MEDS: PRILOSEC PO SCH (08:16)
[2019-04-04] MEDS: NORCO-7.5 PO PRN ×4 (08:16→20:58)
[2019-04-04] MEDS: PERIDEX MT SCH ×2 (08:16→20:51)
[2019-04-04] MEDS: LOVENOX SUBQ SCH (10:56)
--- NOTE | 2019-04-04 11:10 | GENERAL SURGERY PROGRESS NOTE ---
DATE: 04/04/2019 SUBJECTIVE: Ms. Alves is doing generally well. She is afebrile, heart rate 86, blood pressure 109/57. Her urine output has been satisfactory. Drain is serosanguineous. Bowel sounds are hypoactive. PLAN: The plan is to remove her NG tube today. I will have to transfuse her 1 unit today because of her anemia, actually will give her 2 units. Will leave her Amin in for now. cc: Jerardo Taylor MD
[2019-04-05] MEDS: CLINIMIX E 4.25%-5% SOLUTION 1,000 ML IV SCH ×3 (01:27→13:38)
[2019-04-05] MEDS: NORCO-7.5 PO PRN ×5 (03:17→21:37)
[2019-04-05] MEDS: ZOSYN 3.375 GM in NS 50 ML IV SCH ×4 (03:18→21:37)
[2019-04-05 06:58] LABS: BASO# 0.03 X1000 (0.0-0.2); BASO% 0.2 % (0.0-0.8); EOS# 0.13 X1000 (0.0-0.7); EOS% 1.1 % (0.0-10.0); HEMATOCRIT 30.3 % (37.0-47.0); HEMOGLOBIN 9.7 g/dL (12.0-16.0); LYMPH# 0.57 X1000 (1.2-3.4); LYMPH% 4.7 % (20.5-51.1); MCH 29.2 PG (27-31); MCV 91.3 FL (81-99); MONO# 0.73 X1000 (0.11-0.59); MPV 9.4 FL (7.4-10.4); NEUT# 10.66 X1000 (1.4-6.5); PLT 331 X1000 (130-400); RBC 3.32 XMIL (4.2-5.4); RDW 17.2 % (11.5-14.5); WBC 12.12 X1000 (4.8-10.8)
[2019-04-05 07:13] LABS: AGAP 8; BUN 6 mg/dL (8-22); CHLORIDE 102 mmol/L (98-107); COSMO 275; CREATININE 0.3 mg/dL (0.5-0.9); ESTIMATED GFR > 60; GLUCOSE 96 mg/dL (70-104); POTASSIUM 3.8 mmol/L (3.5-5.1); SODIUM 139 mmol/L (136-145); TCO2 29 mmol/L (25-35)
[2019-04-05] MEDS: PRILOSEC PO SCH (08:49)
[2019-04-05] MEDS: PERIDEX MT SCH ×2 (08:50→21:37)
[2019-04-05] MEDS: DILAUDID IV PRN ×2 (11:28→15:44)
[2019-04-05] MEDS: LOVENOX SUBQ SCH (12:28)
--- NOTE | 2019-04-05 15:10 | GENERAL SURGERY PROGRESS NOTE ---
DATE: 04/05/2019 SUBJECTIVE: Ms. Alves is doing generally well. OBJECTIVE: Vital signs: She is afebrile, heart rate 82, blood pressure 123/61. Abdomen: She has active bowel sounds now. She has really not passed a lot of flatus, just a little bit. Her intake was 4,098. Output 1,955. Drain is only 5 mL. PLAN: The plan today is to remove her Amin catheter. I will give her clear liquids. I will cut down her IV rate. cc: Jerardo Taylor MD
[2019-04-06] MEDS: NORCO-7.5 PO PRN ×3 (02:43→20:50)
[2019-04-06] MEDS: ZOSYN 3.375 GM in NS 50 ML IV SCH ×2 (02:44→09:45)
[2019-04-06] MEDS: DILAUDID IV PRN ×2 (07:29→14:53)
[2019-04-06] MEDS: ZOFRAN IV PRN ×3 (07:29→20:50)
[2019-04-06 07:30] LABS: BASO# 0.01 X1000 (0.0-0.2); BASO% 0.1 % (0.0-0.8); EOS# 0.12 X1000 (0.0-0.7); HEMATOCRIT 33.2 % (37.0-47.0); HEMOGLOBIN 10.8 g/dL (12.0-16.0); IMM GRAN# 0.07 X1000 (0.0-0.04); IMM GRAN% 0.6 % (0.0-0.5); LYMPH# 0.69 X1000 (1.2-3.4); LYMPH% 5.6 % (20.5-51.1); MCH 28.9 PG (27-31); MCHC 32.5 g/dL (33-37); MCV 88.8 FL (81-99); MONO# 0.87 X1000 (0.11-0.59); MONO% 7.1 % (1.7-9.3); MPV 9.6 FL (7.4-10.4); NEUT# 10.53 X1000 (1.4-6.5); NEUT% 85.6 % (42.2-75.2); PLT 423 X1000 (130-400); RBC 3.74 XMIL (4.2-5.4); RDW 16.7 % (11.5-14.5); WBC 12.29 X1000 (4.8-10.8)
[2019-04-06 07:42] LABS: AGAP 12; BUN 8 mg/dL (8-22); CALCIUM 8.7 mg/dL (8.8-10.2); CHLORIDE 98 mmol/L (98-107); COSMO 273; CREATININE 0.2 mg/dL (0.5-0.9); ESTIMATED GFR > 60; GLUCOSE 113 mg/dL (70-104); SODIUM 137 mmol/L (136-145); TCO2 27 mmol/L (25-35)
[2019-04-06 08:33] LABS: ANISOCYTOSIS 2+; EOS 1 % (1-10); LYMPHS 6 % (21-51); MICROCYTOSIS 2+; MONO 8 % (1-9); POIKILOCYTOSIS 2+; SEGS 85 % (42-75); TARGET CELLS 2+
[2019-04-06] MEDS: CLINIMIX E 4.25%-5% SOLUTION 1,000 ML IV SCH (09:45)
[2019-04-06] MEDS: PRILOSEC PO SCH (09:46)
[2019-04-06] MEDS: PERIDEX MT SCH (09:46)
[2019-04-06] MEDS: LOVENOX SUBQ SCH (11:00)
--- NOTE | 2019-04-06 16:10 | GENERAL SURGERY PROGRESS NOTE ---
DATE: 04/06/2019 Ms. Alves is now 4 days after her ileal resection and sigmoid resection. She is slowly progressing. She is afebrile. Heart rate 79, blood pressure 124/74. Her abdomen is distended and tympanitic. She has passed a little flatus but not much. She did vomit this morning. Intake 1502, output 1180. Drainage is serous. She had 80 mL out her RIGOBERTO drain. She has urinated without her Amin. White count 99851, hemoglobin 10.8, hematocrit 33. Chemistry is okay. PLAN: To not advance her diet since she vomited this morning. We will take her drain out. She is encouraged to get up and move around and to cautiously take her liquids. Dr. Vega will cover the weekend. cc: Jerardo Taylor MD
[2019-04-07] MEDS: CLINIMIX E 4.25%-5% SOLUTION 1,000 ML IV SCH ×4 (01:59→19:25)
[2019-04-07] MEDS: PERIDEX MT SCH ×3 (03:40→23:50)
[2019-04-07] MEDS: ZOFRAN IV PRN ×4 (06:46→19:27)
[2019-04-07] MEDS: NORCO-7.5 PO PRN ×5 (06:47→23:49)
[2019-04-07] MEDS: PRILOSEC PO SCH (09:23)
[2019-04-07] MEDS: LOVENOX SUBQ SCH (11:03)
--- NOTE | 2019-04-07 13:03 | GENERAL SURGERY PROGRESS NOTE ---
DATE: 04/07/2019 SUBJECTIVE: The patient reports drinking some clear liquids with occasional nausea. She is interested in trying some full liquids. OBJECTIVE: Vital signs: She is afebrile. Vital signs are stable. General: She is awake and alert, oriented x3. No acute distress. Respiratory: No work of breathing. Gastrointestinal: Soft, moderately distended. She does have bowel sounds. Mildly tender. Incision is clean, dry, and intact. LABORATORY DATA: White blood cell count 12. Electrolytes reviewed and unremarkable. ASSESSMENT AND PLAN: A 73-year-old female status post ileocecectomy and low anterior resection for terminal ileitis and diverticulitis. She is having a postoperative ileus. We will cautiously advance her to full liquids. She is on TPN for extra nutritional support. cc: MD Jerardo Hernandez MD
[2019-04-08] MEDS: CLINIMIX E 4.25%-5% SOLUTION 1,000 ML IV SCH ×3 (05:08→19:00)
[2019-04-08] MEDS: PRILOSEC PO SCH (08:46)
[2019-04-08] MEDS: NORCO-7.5 PO PRN ×3 (08:46→18:02)
[2019-04-08] MEDS: PERIDEX MT SCH ×2 (08:47→20:22)
[2019-04-08] MEDS: LOVENOX SUBQ SCH (11:38)
[2019-04-08] MEDS: MILK OF MAGNESIA PO SCH ×2 (11:42→21:00)
--- NOTE | 2019-04-08 13:46 | GENERAL SURGERY PROGRESS NOTE ---
DATE: 04/08/2019 SUBJECTIVE: She is feeling better. She is tolerating a full liquid diet without nausea or vomiting. She is having flatus. OBJECTIVE: Vital signs: She is afebrile. Vital signs are stable. General: She is awake, alert, oriented x3. No acute distress. GI: Soft. Less distended. She does have good bowel sounds. Incision is clean, dry, and intact. ASSESSMENT AND PLAN: A 73-year-old female status post ileocecectomy and low anterior resection. She has had somewhat of a postoperative ileus that appears to be improving. We will keep her on full liquids today and monitor for good solid oral intake and can wean her off the Clinimix. cc: MD Jerardo Hernandez MD
[2019-04-08] MEDS: DILAUDID IV PRN (20:22)
[2019-04-09] MEDS: NORCO-7.5 PO PRN ×3 (02:52→13:40)
--- NOTE | 2019-04-09 09:17 | GENERAL SURGERY PROGRESS NOTE ---
DATE: 04/09/2019 SUBJECTIVE: Mrs. Alves is now a week after her small bowel and colon resection. She is passing some flatus. Her bowels have moved. OBJECTIVE: She is afebrile. Hemodynamics were good. Bowel sounds are present. There is some tinkling. Her abdomen is somewhat distended. Her wound looks fine. PLAN: The plan will be to advance her diet today and get her up in a chair. cc: Jerardo Taylor MD
[2019-04-09] MEDS: ZOFRAN IV PRN ×3 (09:26→20:47)
[2019-04-09] MEDS: PRILOSEC PO SCH (10:47)
[2019-04-09] MEDS: MILK OF MAGNESIA PO SCH (10:48)
[2019-04-09] MEDS: PERIDEX MT SCH ×2 (13:41→20:47)
[2019-04-09] MEDS: LOVENOX SUBQ SCH (13:44)
[2019-04-09] MEDS: CLINIMIX E 4.25%-5% SOLUTION 1,000 ML IV SCH (13:51)
[2019-04-09] MEDS: REGLAN IV SCH ×2 (15:32→20:48)
[2019-04-09] MEDS: DILAUDID IV PRN ×2 (15:33→20:48)
[2019-04-10] MEDS: DILAUDID IV PRN ×2 (01:11→05:52)
[2019-04-10] MEDS: REGLAN IV SCH ×4 (02:45→21:02)
[2019-04-10] MEDS: CLINIMIX E 4.25%-5% SOLUTION 1,000 ML IV SCH (05:52)
[2019-04-10] MEDS: PRILOSEC PO SCH (08:40)
--- NOTE | 2019-04-10 08:44 | GENERAL SURGERY PROGRESS NOTE ---
DATE: 04/10/2019 Ms. Alves is now 8 days after her laparotomy of small bowel and sigmoid resection. She is better this morning. She is afebrile. Heart rate 98. Blood pressure 138/63. She did vomit some yesterday some bilious material. Her abdomen however is softer today, and she is passing some more flatus. She did have a bowel movement. Intake 1757. Output 900. The plan today is to stop her IV pain medication. She is to be mobilized more today and be up more. She is to take what she can by mouth. We will switch her to p.o. liquid pain medicine. cc: Jerardo Taylor MD
[2019-04-10] MEDS: HYDROCODONE/APAP 7.5-325/15 ML PO PRN ×3 (09:46→19:35)
[2019-04-10] MEDS: ZOFRAN IV PRN ×3 (10:00→19:35)
[2019-04-10] MEDS: LOVENOX SUBQ SCH (10:05)
[2019-04-11] MEDS: CLINIMIX E 4.25%-5% SOLUTION 1,000 ML IV SCH ×3 (00:42→22:31)
[2019-04-11] MEDS: REGLAN IV SCH ×4 (03:36→22:24)
[2019-04-11] MEDS: PRILOSEC PO SCH (08:29)
[2019-04-11] MEDS: HYDROCODONE/APAP 7.5-325/15 ML PO PRN (08:30)
--- NOTE | 2019-04-11 09:52 | GENERAL SURGERY PROGRESS NOTE ---
DATE: 04/11/2019 SUBJECTIVE: Ms. Alves has less nausea. She is having diarrheal stools now. Her abdomen was significantly decompressed and softer. We will recheck her lab work. I will get Case Management to see her regarding rehab placement. She does not like the liquid [place], so we will switch her to p.o. tramadol. cc: Jerardo Taylor MD
--- NOTE | 2019-04-11 09:59 | Diag Imaging Result Doc PS360 ---
EXAM: FLAT/UPRIGHT ABD/1 VIEW CHEST 04/11/2019 HISTORY: vomiting and diarrhea TECHNIQUE: Flat and upright abdomen with AP chest COMMENT: There is evidently COPD. There is platelike opacity in the right upper lobe which was not present on 03/29/2019 and is presumably due to atelectasis. There is also apparent atelectasis in the medial right lower lobe. The stomach is not distended. There is diffuse small bowel gas which has increased since 03/29/2019. There is some colonic gas as well. No evidence of organomegaly or mass is present. There are surgical skin clips from the upper abdomen to the mid pelvis in the midline. IMPRESSION: 1. Atelectasis on the right. COPD. 2. Ileus. Electronically signed by Omar Jones 04/11/2019 9:57 AM
[2019-04-11] MEDS: LOVENOX SUBQ SCH (10:20)
[2019-04-11] MEDS: ULTRAM PO PRN ×2 (10:20→22:24)
[2019-04-12 07:14] LABS: BASO# 0.03 X1000 (0.0-0.2); BASO% 0.5 % (0.0-0.8); EOS% 1.7 % (0.0-10.0); HEMATOCRIT 32.1 % (37.0-47.0); HEMOGLOBIN 10.5 g/dL (12.0-16.0); LYMPH# 0.64 X1000 (1.2-3.4); LYMPH% 10.8 % (20.5-51.1); MCH 28.8 PG (27-31); MCHC 32.7 g/dL (33-37); MCV 88.2 FL (81-99); MONO# 0.73 X1000 (0.11-0.59); MONO% 12.3 % (1.7-9.3); MPV 9.2 FL (7.4-10.4); NEUT# 4.45 X1000 (1.4-6.5); NEUT% 74.7 % (42.2-75.2); PLT 468 X1000 (130-400); RBC 3.64 XMIL (4.2-5.4); RDW 15.5 % (11.5-14.5); WBC 5.95 X1000 (4.8-10.8)
[2019-04-12 07:27] LABS: AGAP 14; BUN 9 mg/dL (8-22); CALCIUM 8.4 mg/dL (8.8-10.2); CHLORIDE 90 mmol/L (98-107); COSMO 257; CREATININE 0.2 mg/dL (0.5-0.9); ESTIMATED GFR > 60; GLUCOSE 119 mg/dL (70-104); POTASSIUM 3.5 mmol/L (3.5-5.1); SODIUM 128 mmol/L (136-145); TCO2 24 mmol/L (25-35)
[2019-04-12] MEDS: LOVENOX SUBQ SCH (09:13)
[2019-04-12] MEDS: REGLAN IV SCH ×2 (09:13→16:20)
[2019-04-12] MEDS: PRILOSEC PO SCH (09:13)
[2019-04-12] MEDS: ULTRAM PO PRN ×2 (09:13→16:47)
[2019-04-12] MEDS: ZOFRAN IV PRN (13:24)
[2019-04-12] MEDS: CLINIMIX E 4.25%-5% SOLUTION 1,000 ML IV SCH (18:15)
--- NOTE | 2019-04-12 20:31 | GENERAL SURGERY PROGRESS NOTE ---
DATE: 04/12/2019 OBJECTIVE: She is afebrile. Heart rate 90, blood pressure 128/66. Her appetite remains poor. She has had some loose stools. Her abdomen is soft and much less tender. PLAN: Stop her IV Reglan. We will give her an appetite stimulant, and I will get a 12-lead EKG as well because of her irregular heartbeat. cc: Jerardo Taylor MD
[2019-04-12] MEDS: MEGACE LIQUID PO SCH (21:20)
[2019-04-13] MEDS: LOVENOX SUBQ SCH (10:21)
[2019-04-13] MEDS: MEGACE LIQUID PO SCH (10:21)
[2019-04-13] MEDS: PRILOSEC PO SCH (10:21)
[2019-04-13 12:14] VITALS: BP 141/65
[2019-04-13] MEDS: ZOFRAN IV PRN (12:31)
--- NOTE | 2019-04-13 12:44 | DISCHARGE SUMMARY ---
ADMISSION DATE: 03/29/2019 DISCHARGE DATE: 04/13/2019 BRIEF HISTORY: Ms. Alves is a pleasant 74-year-old lady who presented a month ago with pelvic abscess and evidence of terminal ileitis and diverticulitis. She was discharged home on Augmentin, but developed symptoms again as an outpatient so we had to admit her, place her on antibiotics, prep her bowel and operate on her. Her other medical problems include some hypertension. She has smoked cigarettes in the past, but has not in the past month. The operation performed was a laparotomy with ileo-cecectomy, low anterior sigmoid resection and drainage of pelvic abscess. HOSPITAL COURSE: This is a 74-year-old who was admitted with recurrent symptoms related to her terminal ileitis and her diverticulitis. She was admitted, placed on IV antibiotics and then prepared for surgery. We were able to prep her bowel preoperatively so when we operated on her on 04/02/2019 we were able to resect her terminal ileum and do a small bowel to transverse colon resection and then do a low anterior sigmoid resection as well. Postoperatively she really did quite well. We kept her on amino acids intravenously for nourishment. We were able to finally stop her antibiotics after 5 days. We started her on liquids and then advanced her diet. She was able to tolerate her p.o. intake though she did require some antinausea medication to help with that. Her bowel function finally returned, she started passing flatus, her abdomen decompressed. Our challenge then was to nourished her, so we ultimately had to put her on an appetite stimulant to assist with that and maintained her on Clinimix throughout her hospital course for nourishment. By 04/13/2019 she was able to have her giorgi removed, she was taking some p.o. intake better, her bowels were moving, her abdomen is soft, she was afebrile, and it was felt she could be transferred to rehab and we are awaiting approval but when that is available she will be transferred to rehabilitation. She will return to see me in the office after rehab. cc: Jerardo Taylor MD
[2019-04-13] MEDS: CLINIMIX E 4.25%-5% SOLUTION 1,000 ML IV SCH (12:54)
--- NOTE | 2019-04-13 13:24 | GENERAL SURGERY PROGRESS NOTE ---
DATE: 04/13/2019 She is afebrile. Hemodynamics are satisfactory. She is eating a little bit better. Her wound is fine. Her giorgi were removed. She can be discharged to rehab as soon as a bed becomes available and she will return to see me in the office after she leaves rehabilitation. She understands that. cc: Jerardo Taylor MD
== END 2019-04-13 15:53 | DRG 330 ==
LOC: DIRADM 09:03 → 4N 11:25
PROVIDERS: ADMIT Surgery; ATTEND Surgery